=== PATIENT | female | born 1965 | race Caucasian/White ===

== ENCOUNTER → 2017-02-23 | Outpatient (CLI) | payer BC, OTHER ==
--- NOTE | 2017-02-25 10:23 | USB ---
Reason for exam: follow-up at short interval from prior study. History: Patient is postmenopausal and had first child at age 37. Family history of breast cancer in sister at age 63 and breast cancer in mother at age 82. Benign US biopsy breast VAD LT of the left breast, August 21, 2016. Benign left mammotome panel of the left breast, March 07, 2010. Took hormonal contraceptives for 5 years. Physical Findings: Nurse did not find any significant physical abnormalities on exam. US Breast LT Left breast ultrasound includes all four quadrants, the retroareolar region and axilla. Finding demonstrate a 0.5 x 0.5 x 0.5cm shadowing area with clip seen at 2 o'clock, prior biopsy. These results were verbally communicated with the patient and result sheet given to the patient on 02/23/17. ASSESSMENT: Probably benign, BI-RAD 3 RECOMMENDATION: Ultrasound of the left breast in 6 months. Return to routine screening mammogram schedule for both breasts. Back on schedule.
== END | disposition home or self-care (01) ==
LOC: RADUSWWP 09:32
PROVIDERS: ATTEND Obstetrics & Gynecology
DX: R92.8 Other abnormal and inconclusive findings on diagnostic imaging of breast (principal)

== ENCOUNTER → 2017-05-14 | Outpatient (CLI) | payer BC ==
--- NOTE | 2017-05-14 13:47 | XR ---
EXAMINATION TYPE: XR thoracic spine complete DATE OF EXAM: 05/14/2017 COMPARISON: NONE HISTORY: Back pain TECHNIQUE: Three-view thoracic spine FINDINGS: Disc heights are preserved. Vertebral body heights are preserved. There are 12 thoracic typ e vertebral bodies. The pedicles are intact. IMPRESSION: 1. No acute osseous abnormality thoracic spine.
== END | disposition home or self-care (01) ==
LOC: RADXRMAIN 12:58
PROVIDERS: ATTEND Internal Medicine
DX: M54.9 Dorsalgia, unspecified (principal)
CPT/HCPCS: 72072

== ENCOUNTER → 2017-09-03 | Outpatient (CLI) | payer BC, OTHER ==
--- NOTE | 2017-09-06 08:49 | MM ---
Reason for exam: additional evaluation requested from prior study. Last mammogram was performed 1 year ago. History: Patient is postmenopausal and had first child at age 37. Family history of breast cancer in sister at age 63 and breast cancer in mother at age 82. Benign US biopsy breast VAD LT of the left breast, August 21, 2016. Benign left mammotome panel of the left breast, March 07, 2010. Took hormonal contraceptives for 5 years. Physical Findings: Nurse did not find any significant physical abnormalities on exam. MG 3D Diag Mammo W/Cad GUILLE Bilateral CC and MLO view(s) were taken. Prior study comparison: August 21, 2016, left breast MG diagnostic mammo LT wo CAD. August 05, 2016, bilateral MG screening mammo w CAD. There are scattered fibroglandular densities. Previous mammotome biopsy in the left breast x 2. There is chronic nodularity in the left breast. Some slight increasing calcifications 4 o'clock posterior left breast suspected early developing vascular calcifications. 6 month follow up recommended. These results were verbally communicated with the patient and result sheet given to the patient on 09/03/17. ASSESSMENT: Incomplete: need additional imaging evaluation, BI-RAD 0 RECOMMENDATION: Ultrasound of the left breast. (as recommended previoiusly)
--- NOTE | 2017-09-06 08:51 | USB ---
Reason for exam: additional evaluation requested from abnormal screening. History: Patient is postmenopausal and had first child at age 37. Family history of breast cancer in sister at age 63 and breast cancer in mother at age 82. Benign US biopsy breast VAD LT of the left breast, August 21, 2016. Benign left mammotome panel of the left breast, March 07, 2010. Took hormonal contraceptives for 5 years. US Breast LT Left breast ultrasound includes all four quadrants, the retroareolar region and axilla. Finding demonstrates no cystic or solid lesion seen. 6 month follow up recommended for the calcifications seen on mammogram. These results were verbally communicated with the patient and result sheet given to the patient on 09/03/17. ASSESSMENT: Probably benign, BI-RAD 3 RECOMMENDATION: Follow-up diagnostic mammogram of the left breast in 6 months.
== END | disposition home or self-care (01) ==
LOC: RADMAMWWP 13:24
PROVIDERS: ATTEND Obstetrics & Gynecology
DX: R92.8 Other abnormal and inconclusive findings on diagnostic imaging of breast (principal)
CPT/HCPCS: 76641; G0204; G0279

== ENCOUNTER → 2018-03-08 | Outpatient (CLI) | payer OTHER ==
--- NOTE | 2018-03-08 11:07 | MM ---
Reason for exam: follow-up at short interval from prior study. Last mammogram was performed 6 months ago. History: Patient is postmenopausal and had first child at age 37. Family history of breast cancer in sister at age 63 and breast cancer in mother at age 82. Benign US biopsy breast VAD LT of the left breast, August 21, 2016. Benign left mammotome panel of the left breast, March 07, 2010. Took hormonal contraceptives for 5 years. Physical Findings: Nurse did not find any significant physical abnormalities on exam. MG 3D Diag Mammo W/Cad LT CC and MLO view(s) were taken of the left breast. Prior study comparison: September 03, 2017, bilateral MG 3d diag mammo w/cad GUILLE. August 21, 2016, left breast MG diagnostic mammo LT wo CAD. The breast tissue is heterogeneously dense. This may lower the sensitivity of mammography. Stable vascular and punctate calcifications in the left breast. These results were verbally communicated with the patient and result sheet given to the patient on 03/08/18. ASSESSMENT: Benign, BI-RAD 2 RECOMMENDATION: Routine screening mammogram of both breasts in 6 months. Back on schedule.
== END | disposition home or self-care (01) ==
LOC: RADMAMWWP 10:08
PROVIDERS: ATTEND Obstetrics & Gynecology
DX: R92.8 Other abnormal and inconclusive findings on diagnostic imaging of breast (principal)
CPT/HCPCS: 77061; 77065

== ENCOUNTER → 2018-09-13 | Outpatient (CLI) | payer OTHER ==
--- NOTE | 2018-09-14 08:16 | MM ---
Reason for exam: screening (asymptomatic). Last mammogram was performed 6 months ago. History: Patient is postmenopausal and had first child at age 37. Family history of breast cancer in sister at age 63 and breast cancer in mother at age 82. Benign US biopsy breast VAD LT of the left breast, August 21, 2016. Benign left mammotome panel of the left breast, March 07, 2010. Took hormonal contraceptives for 5 years. Physical Findings: A clinical breast exam by your physician is recommended on an annual basis and results should be correlated with mammographic findings. MG 3D Screening Mammo W/Cad Bilateral CC and MLO view(s) were taken. Prior study comparison: March 08, 2018, left breast MG 3d diag mammo w/cad LT. September 03, 2017, bilateral MG 3d diag mammo w/cad GUILLE. The breast tissue is heterogeneously dense. This may lower the sensitivity of mammography. Stable benign calcifications. There is no discrete abnormality. No significant changes when compared with prior studies. ASSESSMENT: Benign, BI-RAD 2 RECOMMENDATION: Routine screening mammogram of both breasts in 1 year.
== END | disposition home or self-care (01) ==
LOC: RADMAMWWP 09:46
PROVIDERS: ATTEND Obstetrics & Gynecology
DX: Z12.31 Encounter for screening mammogram for malignant neoplasm of breast (principal)
CPT/HCPCS: 77063; 77067

== ENCOUNTER → 2019-09-18 | Outpatient (CLI) | payer OTHER ==
--- NOTE | 2019-09-18 12:29 | BD ---
EXAMINATION TYPE: Axial Bone Density DATE OF EXAM: 09/18/2019 COMPARISON: NONE CLINICAL HISTORY: N 95.1 Height: 60.2 IN Weight: 182 LBS RISK FACTORS HISTORY OF: Family History of Osteoporosis: YES MOTHER Active: YES Diet low in dairy products/other sources of calcium: YES Postmenopausal woman: AGE 50 MEDICATIONS: Additional Medications: BREO INHALER, PEPCID, SINGULAIR, LIPITOR, ALLERGY MEDS, ZOLOFT EXAM MEASUREMENTS: Bone mineral densitometry was performed using the [employer] System. Bone mineral density as measured about the Lumbar spine is: ----- L1-L4(G/cm2): 1.223 T Score Values are as follows: ----- L2: 0.0 ----- L3: 0.7 ----- L4: 1.1 ----- L1-L4: 0.4 Bone mineral density BASELINE Bone mineral density about the R hip (g/cm2): 0.939 Bone mineral density about the L hip (g/cm2): 0.892 T Score values are as follows: -----R Neck: -0.7 -----L Neck: -1.0 -----R Total: 0.3 -----L Total: 0.0 Bone mineral density BASELINE IMPRESSION: Normal (Values between +1 and -1 indicate normal bone mass). Values are borderline for osteopenia. C onsider repeating this study in 5 years or sooner if there is some new clinical indication. NOTE: T-SCORE=SD OF THE YOUNG ADULT MEAN.
--- NOTE | 2019-09-19 09:10 | MM ---
Reason for exam: screening (asymptomatic). Last mammogram was performed 1 year ago. History: Patient is postmenopausal and had first child at age 37. Family history of breast cancer in sister at age 63 and breast cancer in mother at age 82. Benign US biopsy breast VAD LT of the left breast, August 21, 2016. Benign left mammotome panel of the left breast, March 07, 2010. Took hormonal contraceptives for 5 years. Physical Findings: A clinical breast exam by your physician is recommended on an annual basis and results should be correlated with mammographic findings. MG 3D Screening Mammo W/Cad Bilateral CC and MLO view(s) were taken. Prior study comparison: September 13, 2018, bilateral MG 3d screening mammo w/cad. March 08, 2018, left breast MG 3d diag mammo w/cad LT. The breast tissue is heterogeneously dense. This may lower the sensitivity of mammography. Finding #1: There is a 7 mm equal density (isodense), obscured oval mass in the lower outer quadrant of the left breast. Finding #2: There are typically benign calcifications in both breasts. Previous mammotome biopsy in the left breast. ASSESSMENT: Incomplete: need additional imaging evaluation, BI-RAD 0 RECOMMENDATION: Special view mammogram of the left breast. If lesion persists on supplemental views, image directed ultrasound is recommended. [facility] will attempt to contact patient to return for supplemental views and ultrasound if indicated.
== END | disposition home or self-care (01) ==
LOC: RADMAMWWP 11:42
PROVIDERS: ATTEND Obstetrics & Gynecology
DX: Z12.31 Encounter for screening mammogram for malignant neoplasm of breast (principal); N95.1 Menopausal and female climacteric states
CPT/HCPCS: 77063; 77067; 77080

== ENCOUNTER → 2019-09-29 | Outpatient (CLI) | payer OTHER ==
--- NOTE | 2019-09-29 13:57 | MM ---
Reason for exam: additional evaluation requested from abnormal screening. Last mammogram was performed less than 1 month ago. History: Patient is postmenopausal and had first child at age 37. Family history of breast cancer in sister at age 63 and breast cancer in mother at age 82. Benign US biopsy breast VAD LT of the left breast, August 21, 2016. Benign left mammotome panel of the left breast, March 07, 2010. Took hormonal contraceptives for 5 years. Physical Findings: Nurse did not find any significant physical abnormalities on exam. MG 3D Work Up W/Cad LT Spot compression CC, spot compression MLO, and ML view(s) were taken of the left breast. Prior study comparison: September 18, 2019, bilateral MG 3d screening mammo w/cad. September 13, 2018, bilateral MG 3d screening mammo w/cad. The breast tissue is heterogeneously dense. This may lower the sensitivity of mammography. Finding: There is an intermediate concern, suspicious high density, microlobulated irregular mass located 11 cm from the nipple in the lower outer quadrant, middle position of the left breast. New finding since September 18, 2019 and September 13, 2018. These results were verbally communicated with the patient and result sheet given to the patient on 09/29/19. ASSESSMENT: Incomplete: need additional imaging evaluation, BI-RAD 0 RECOMMENDATION: Ultrasound of the left breast.
--- NOTE | 2019-09-29 14:00 | USB ---
Reason for exam: additional evaluation requested from abnormal screening. History: Patient is postmenopausal and had first child at age 37. Family history of breast cancer in sister at age 63 and breast cancer in mother at age 82. Benign US biopsy breast VAD LT of the left breast, August 21, 2016. Benign left mammotome panel of the left breast, March 07, 2010. Took hormonal contraceptives for 5 years. US Breast Workup Limited LT Left limited breast ultrasound including focal area of concern, retroareolar and axilla demonstrates a 6 x 9 x 8mm irregular, spiculated, solid, hypoechoic lesion at 4 o'clock and a 2.3 x 1.3 x 1.5cm hypoechoic lymph node at the axilla. Multiple enlarged lymph nodes in the left axilla. These results were verbally communicated with the patient and result sheet given to the patient on 09/29/19. ASSESSMENT: Suspicious, BI-RAD 4 RECOMMENDATION: Surgical consultation and ultrasound core biopsy of the left breast. (4 o'clock ultrasound lesion, consider lymph node biopsy) Called Dr. Morejon's office with mammographic findings and has scheduled an appointment for the patient for 11/02/18 at 11:[address] Willson. Biopsy scheduled for 10/23/18 at 8:00. PRELIMINARY REPORT CALLED AND FAXED TO DR. WILLSON ON 09/29/19.
== END | disposition home or self-care (01) ==
LOC: RADMAMWWP 10:07
PROVIDERS: ATTEND Obstetrics & Gynecology
DX: R92.8 Other abnormal and inconclusive findings on diagnostic imaging of breast (principal)
CPT/HCPCS: 77061; 77065

== ENCOUNTER → 2019-10-23 | Day surgery (SDC) | payer OTHER ==
[2019-10-23 07:35] VITALS: BP 105/69; PULSE 61; RESP 12; TEMP 98.1
--- NOTE | 2019-10-23 10:08 | USB ---
EXAMINATION TYPE: US breast needle core LT, US biopsy breast VAD LT, MG diagnostic mammo LT wo CAD DATE OF EXAM: 10/23/2019 CLINICAL HISTORY: R92.8, ABN MAMM. TECHNIQUE: Ultrasound guided core biopsy of left breast. COMPARISON: 09/29/2019 FINDINGS: The procedure of ultrasound guided core biopsy was explained to the patient. Benefits, alternatives, and risks were discussed. An informed consent was then obtained. Preprocedural timeout was performed. Site A (4:00): The patient was placed in supine positioning for imaging and for the procedure. The overlying skin was prepped and draped in usual sterile fashion. 10 cc of 1% lidocaine was used as anesthetic into the skin and subcutaneous tissue and 10 cc of lidocaine with epinephrine was utilized to anesthetize the subcutaneous tissues up to the 9 mm mass at the 4:00 position in the left breast. Under ultrasound guidance, a 12-gauge vacuum assisted biopsy gun device was used to obtain 5 core samples. Following this, a ribbon-shaped biopsy marker was left in the mass. Site B (axillary lymph node): The patient was placed in supine positioning for imaging and for the procedure. The overlying skin was prepped and draped in usual sterile fashion 10 cc of 1% lidocaine was used as anesthetic into the skin and subcutaneous tissue up to the enlarged left axillary lymph node. Under ultrasound guidance, a 12-gauge vacuum assisted biopsy gun device was used to obtain 3 core samples. Following this, a hydromark was left in lymph node. Postprocedure mammogram demonstrates appropriate biopsy marker placement. The patient tolerated the procedure well without any immediate complication. The patient was kept in the radiology department for short stay after the procedure and then discharged home in stable condition. IMPRESSION: Successful, uncomplicated ultrasound guided core biopsy of a highly suspicious 9 mm mass at the 4:00 position in the left breast and enlarged left axillary lymph node, full pathology results to follow. Of note there is at least one additional enlarged left axillary lymph node. Pathology Results: Malignant A. LEFT BREAST LESION AT 4:00 POSITION, BIOPSIES: Infiltrating duct carcinoma, Fernanda Grade 3. See Surgical Pathology Cancer Case Summary. B. LEFT AXILLARY NODULE, NEEDLE CORE BIOPSY: Sclerotic fibroadipose tissue involved by adenocarcinoma histologically similar to that seen in the 4:00 breast biopsy specimen. Due to the absence of lymph node tissue, it cannot be determined whether findings represent separate primaries arising in axillary breast tissue vs replaced nodes. C. LEFT AXILLARY NEEDLE CORE BIOPSY: Sclerotic fibroadipose tissue involved by adenocarcinoma histologically similar to that seen in the 4:00 breast biopsy specimen. Due to the absence of lymph node tissue, it cannot be determined whether findings represent separate primaries arising in axillary breast tissue vs replaced nodes. Recommendation Surgical consult of the left breast. Definitive surgical/medical management. MTDD
== END ==
LOC: RADUSWWP 06:59
PROVIDERS: ATTEND Surgery
DX: C50.512 Malignant neoplasm of lower-outer quadrant of left female breast (principal); Z17.0 Estrogen receptor positive status [ER+]
CPT/HCPCS: 88305; 88342; 88341; 77065; 38505; 19083; A4648; J2001

== ENCOUNTER 2019-11-16 11:58 | Day surgery (SDC) | payer OTHER ==
[2019-11-15 08:30] VITALS: BMI 34.0
[~2019-11-16 11:58] MED LIST: DEXAMETHASONE SOD PHOSPHATE 10 MG/ML 1 ML VIAL IV ONE; HEPARIN SODIUM,PORCINE 5,000 UNIT/ML 1 ML VIAL SQ ONE; HYDROmorphone 0.5 MG/0.5 ML SYRINGE IVP PRN; LACTATED RINGERS 1,000 ML IV SCH; LIDOCAINE 1% 20 ML VIAL (10MG/ML) FOR IV START INTRADERMA PRN; Pre Op ABX Message 1 EACH MISC MISCELLANE ONE; SCOPOLAMINE 1.5MG/72HR PATCH TRANSDERM ONE
[2019-11-16] MEDS ORDERED: ONDANSETRON 4 MG/2 ML VIAL IVP ONE (12:25)
[2019-11-16] MEDS ORDERED: HEPARIN SODIUM,PORCINE 100 UNIT/ML 5 ML VIAL IV ONE (13:28)
[2019-11-16] MEDS ORDERED: LIDOCAINE (PF) 10 MG/ML 2 ML VIAL SQ ONE ×2 (13:29→14:21)
--- NOTE | 2019-11-16 13:32 | P.GSHP ---
History of Present Illness H&P Date: 11/16/19 Chief Complaint: Left breast cancer 54-year-old female here today for Port-A-Cath placement. Patient with recent diagnosis of left-sided breast cancer with lymph node metastasis. Patient is to begin neoadjuvant chemotherapy. She has a PET scan ordered for tomorrow and an MRI scheduled for Wednesday. She has not had a port previously. Past Medical History Past Medical History: Asthma, Cancer, GERD/Reflux, Hyperlipidemia Additional Past Medical History / Comment(s): boderline Diabetic diet controlled, breast cancer History of Any Multi-Drug Resistant Organisms: None Reported Past Surgical History: Breast Surgery, Section, Cholecystectomy Additional Past Surgical History / Comment(s): 2012, 2015 left breast biopsies. finger surgery Past Anesthesia/Blood Transfusion Reactions: Postoperative Nausea & Vomiting (PONV) Additional Past Anesthesia/Blood Transfusion Reaction / Comment(s): once with a colonoscopy Smoking Status: Former smoker - Past Family History Mother Family Medical History: Cancer, Deep Vein Thrombosis (DVT) Additional Family Medical History / Comment(s): breast Sister(s) Family Medical History: Cancer Additional Family Medical History / Comment(s): breast Medications and Allergies Home Medications Medication Instructions Recorded Confirmed Type Cetirizine HCl [Zyrtec] 10 mg PO DAILY 10/06/19 11/15/19 History Famotidine [Pepcid] 20 mg PO BID 10/06/19 11/15/19 History Montelukast [Singulair] 10 mg PO DAILY 10/06/19 11/15/19 History Sertraline [Zoloft] 100 mg PO HS 10/06/19 11/15/19 History Atorvastatin Calcium [Lipitor] 20 mg PO HS 11/15/19 11/15/19 History Fluticasone/Vilanterol [Breo 1 inhalation PO DAILY 11/15/19 11/15/19 History Ellipta 100-25 Mcg Inhaler] Allergies Allergy/AdvReac Type Severity Reaction Status Date / Time ciprofloxacin [From Cipro] Allergy Swelling Verified 11/16/19 12:22 desloratadine [From Clarinex] Allergy Swelling Verified 11/16/19 12:22 loratadine [From Claritin] Allergy Swelling Verified 11/16/19 12:22 Surgical - Exam Vital Signs Temp Pulse Resp BP Pulse Ox 97.0 F L 61 17 121/58 97 11/16/19 12:21 11/16/19 12:21 11/16/19 12:21 11/16/19 12:21 11/16/19 12:21 Physical exam: General: Well-developed, well-nourished HEENT: Normocephalic, sclerae nonicteric Abdomen: Nontender, nondistended Extremities: No edema Neuro: Alert and oriented Assessment and Plan (1) Breast cancer, left Narrative/Plan: Will proceed with Port-A-Cath placement at this time. Risks of bleeding, infection, DVT, pneumothorax, catheter malfunction, anesthesia related complications were discussed. The patient understands and wishes to proceed. Current Visit: Yes Status: Acute Code(s): C50.912 - MALIGNANT NEOPLASM OF UNSPECIFIED SITE OF LEFT FEMALE BREAST SNOMED Code(s): 499469336
[2019-11-16] MEDS ORDERED: MIDAZOLAM 2 MG/2 ML VIAL ONE (13:35)
[2019-11-16] MEDS ORDERED: SUCCINYLCHOLINE CHLORIDE 100 MG/5 ML SYR IV ONE (13:35)
[2019-11-16] MEDS ORDERED: DEXAMETHASONE SOD PHOS (MDV) 100 MG/10 ML VIAL ONE (13:35)
[2019-11-16] MEDS ORDERED: PROPOFOL 10 MG/ML 20 ML VIAL IV ONE (13:35)
[2019-11-16] MEDS ORDERED: LACTATED RINGERS 1,000 ML IV ONE (14:20)
[2019-11-16] MEDS ORDERED: NALOXONE 0.4 MG/ML 1 ML VIAL IV PRN (14:33)
--- NOTE | 2019-11-16 14:35 | P.OP ---
Date of Procedure: 11/16/19 Procedure(s) Performed: PREOPERATIVE DIAGNOSIS: Left breast cancer POSTOPERATIVE DIAGNOSIS: Same PROCEDURE: Port-A-Cath placement SURGEON: Demetris EBL: Minimal ANESTHESIA: General COMPLICATIONS: None OPERATIVE PROCEDURE: Patient was brought and placed on the operative table in the supine position. The patient was sedated per anesthesia that time. The chest and neck were prepped and draped in usual sterile fashion. The ultrasound probe was used to identify the location of the right internal jugular vein. The skin was localized with lidocaine. The Seldinger needle was advanced into the IJ under ultrasound guidance. The wire was advanced through the needle under fluoroscopic guidance into the superior vena cava. A port pocket was created in the right infraclavicular location. The catheter was tunneled from the wire entrance site to the port pocket. The port was then connected to the catheter. The dilator introducer was threaded over the guidewire. The guidewire and dilator were then removed. The catheter was advanced through the introducer and introducer was then removed. The tip was seen to be in the right atrial junction. Port was flushed with both saline and a Hep-Lock solution. There was good flow both in and out of the port. The port was sutured in underlying tissues using 3-0 silk sutures. The subcutaneous tissues were reapproximated using 3-0 Vicryl sutures and the skin at both locations using 4-0 Monocryl sutures. Skin glue and sterile dressings then applied. DISPOSITION: Stable to recovery room
[2019-11-16 14:56] VITALS: TEMP 97.1
--- NOTE | 2019-11-16 15:17 | XR ---
EXAMINATION TYPE: XR chest 1V confirm line [facility] DATE OF EXAM: 11/16/2019 COMPARISON: Chest x-ray dated 03/12/2014 HISTORY: Mediport insertion. TECHNIQUE: Single frontal view of the chest is obtained. FINDINGS: Right-sided Mediport has been inserted with its distal tip appropriately placed in the dist al superior vena cava near the cavoatrial junction. No postprocedural pneumothorax is seen. There is no focal air space opacity, pleural effusion, or pulmonary vascular congestion seen. The cardiac chavez houette size is within normal limits. The osseous structures are intact. Mild arthropathy of the ac romioclavicular joints. IMPRESSION: No acute cardiopulmonary process. Appropriately placed right sided MediPort terminating just cranial to the cavoatrial junction. No postprocedural pneumothorax.
--- NOTE | 2019-11-16 15:31 | FL ---
Fluoroscopy HISTORY: Port-A-Cath placement 5 seconds fluoroscopy time supplied to the referring clinician. 1 intraoperative C-arm images docume nt the procedure. See dictated report from general surgery.
[2019-11-16 15:56] VITALS: PULSE 74; RESP 18
[2019-11-16 16:26] VITALS: BP 125/62
== END 2019-11-16 16:37 | disposition home or self-care (01) ==
LOC: OR 11:58
PROVIDERS: ATTEND Surgery
DX: C50.512 Malignant neoplasm of lower-outer quadrant of left female breast (principal); C77.9 Secondary and unspecified malignant neoplasm of lymph node, unspecified; J45.909 Unspecified asthma, uncomplicated; K21.9 Gastro-esophageal reflux disease without esophagitis; E78.5 Hyperlipidemia, unspecified; E11.9 Type 2 diabetes mellitus without complications; K08.109 Complete loss of teeth, unspecified cause, unspecified class; F32.9 Major depressive disorder, single episode, unspecified; E66.9 Obesity, unspecified; Z98.890 Other specified postprocedural states; Z90.49 Acquired absence of other specified parts of digestive tract; Z91.89 Other specified personal risk factors, not elsewhere classified; Z87.891 Personal history of nicotine dependence; Z80.3 Family history of malignant neoplasm of breast; Z82.49 Family history of ischemic heart disease and other diseases of the circulatory system; Z79.899 Other long term (current) drug therapy; Z79.51 Long term (current) use of inhaled steroids; Z88.1 Allergy status to other antibiotic agents; Z88.8 Allergy status to other drugs, medicaments and biological substances
CPT/HCPCS: 77001; 36561; C1788; J2250; J2001; J1644; J1642; J1100 ×2; J2405; J0330; J2704

== ENCOUNTER → 2019-11-17 | Outpatient (CLI) | payer OTHER ==
--- NOTE | 2019-11-18 16:42 | ECHOF ---
Referral Reason:C50.512 Breast cancer; Z01.818 Pre-chemo MEASUREMENTS -------- HEIGHT: 154.9 cm WEIGHT: 81.6 kg BP: 127/59 RVIDd: 3.0 cm (< 3.3) IVSd: 1.1 cm (0.6 - 1.1) LVIDd: 4.3 cm (3.9 - 5.3) LVPWd: 1.2 cm (0.6 - 1.1) IVSs: 1.6 cm LVIDs: 3.2 cm LVPWs: 1.7 cm LA Diam: 3.6 cm (2.7 - 3.8) LAESV Index (A-L): 19.91 ml/m Ao Diam: 2.7 cm (2.0 - 3.7) AV Cusp: 1.9 cm (1.5 - 2.6) MV EXCURSION: 17.310 mm (> 18.000) MV EF SLOPE: 111 mm/s (70 - 150) EPSS: 0.5 cm MV E Delmer: 0.98 m/s MV DecT: 236 ms MV A Delmer: 0.86 m/s MV E/A Ratio: 1.14 RAP: 5.00 mmHg RVSP: 28.14 mmHg TAPSE: 22.26 mm FINDINGS -------- Sinus rhythm. This was a technically good study. The left ventricular size is normal. There is borderline concentric left ventricular hypertrophy. Overall left ventricular systolic function is normal with, an EF between 60 - 65 %. The right ventricle is normal in size. Normal LA size by volume 22+/-6 ml/m2. The right atrium is normal in size. Interatrial and interventricular septum intact. The aortic valve is trileaflet and appears structurally normal. There is trace mitral regurgitation. Mild tricuspid regurgitation present. Right ventricular systolic pressure is normal at < 35 mmHg. Trace/mild (physiologic) pulmonic regurgitation. The aortic root size is normal. Normal inferior vena cava with normal inspiratory collapse consistent with estimated right atrial pre ssure of 5 mmHg. There is no pericardial effusion. CONCLUSIONS -------- 1. Sinus rhythm. 2. This was a technically good study. 3. The left ventricular size is normal. 4. There is borderline concentric left ventricular hypertrophy. 5. Overall left ventricular systolic function is normal with, an EF between 60 - 65 %. 6. The right ventricle is normal in size. 7. Normal LA size by volume 22+/-6 ml/m2. 8. The right atrium is normal in size. 9. Interatrial and interventricular septum intact. 10. The aortic valve is trileaflet and appears structurally normal. 11. There is trace mitral regurgitation. 12. Mild tricuspid regurgitation present. 13. Right ventricular systolic pressure is normal at < 35 mmHg. 14. Trace/mild (physiologic) pulmonic regurgitation. 15. The aortic root size is normal. 16. Normal inferior vena cava with normal inspiratory collapse consistent with estimated right atrial pressure of 5 mmHg. 17. There is no pericardial effusion. VIRTUAL CLASSROOM MANAGER: Yolanda Prajapati RDCS
--- NOTE | 2019-11-21 10:14 | PE ---
Nuclear medicine PET/CT HISTORY: Breast carcinoma left breast, initial Patient received 13.5 mCi F-18 FDG intravenously in delayed scanning was performed from the skull bas e to the mid thighs. Localization and attenuation correction CT scan was performed. Correlation to ultrasound left breast 09/29/2019, mammogram 09/29/2019 Head and neck: Within the left axilla there is corresponding adenopathy. There are multiple enlarged nodes with associated hypermetabolic uptake, at least 4 nodes with associated abnormal uptake, SUV 5. 2, 8.5, 6.6, 6.4. Some mild uptake noted at the level of the left nipple, minimal uptake in the infer ior aspect of the left breast within some mild soft tissue. There is no evident lung mass. No pleural or pericardial effusion. Right pectoral port is present, th ere is a right jugular catheter coursing to the level of the cavoatrial junction. ABDOMEN: There is no retroperitoneal adenopathy. No evident liver mass. Patient is post cholecystecto my. No suspicious hypermetabolic uptake. Osseous structures are within normal limits. IMPRESSION: Findings of abnormal nodes within the left axilla.
== END | disposition home or self-care (01) ==
LOC: RADECHMAIN 16:00
PROVIDERS: ATTEND Internal Medicine Hematology & Oncology
DX: I07.1 Rheumatic tricuspid insufficiency (principal); C50.512 Malignant neoplasm of lower-outer quadrant of left female breast
CPT/HCPCS: 93306; 78815; A9552

== ENCOUNTER 2020-02-15 08:37 | Day surgery (SDC) | payer OTHER ==
[2020-02-15 09:33] LABS: Glucose,Whole Blood 112 mg/dL (75-99)
[2020-02-15 10:33] VITALS: RESP 18; TEMP 98.1
[2020-02-15 10:50] VITALS: PULSE 69
--- NOTE | 2020-02-15 11:23 | US ---
EXAMINATION TYPE: US FNA first lesion DATE OF EXAM: 02/15/2020 COMPARISON: None HISTORY: Submandibular adenopathy, left submandibular palpable mass. Maximal barrier technique was utilized. After informed consent, skin overlying the node in the left submandibular location as specified by the patient was localized with ultrasound and the overlying sk in prepped and draped. Ultrasound was utilized using sterile technique. Lidocaine was used for local anesthesia. 3 passes with a 25-gauge needle were made into the node and aspirated specimen was submit juma to cytology. Following the procedure hemostasis achieved. No immediate complication. The patie nt discharged in stable condition. IMPRESSION: STATUS POST ULTRASOUND GUIDED FINE NEEDLE ASPIRATION OF LEFT SUBMANDIBULAR LYMPH NODE, TUYET THOLOGY IS PENDING. THIS PROCEDURE WAS PERFORMED BY THE UNDERSIGNED.
[2020-02-15 11:40] VITALS: BP 118/76
== END 2020-02-15 11:20 | disposition home or self-care (01) ==
LOC: RADPROMAIN 08:37
PROVIDERS: ATTEND Internal Medicine Hematology & Oncology
DX: R59.0 Localized enlarged lymph nodes (principal); C50.912 Malignant neoplasm of unspecified site of left female breast
CPT/HCPCS: 10005; 88173; 88305

== ENCOUNTER → 2020-02-15 | Outpatient (CLI) | payer OTHER | END | disposition home or self-care (01) | LOC: LABWHC1 07:04 | PROVIDERS: ATTEND Internal Medicine Hematology & Oncology | DX: U07.1 COVID-19 (principal) | CPT/HCPCS: 87635 ==

== ENCOUNTER → 2020-03-27 | Outpatient (CLI) | payer OTHER | END | disposition home or self-care (01) | LOC: LABWHC1 12:05 | PROVIDERS: ATTEND Internal Medicine | DX: R05 Cough (principal); D84.9 Immunodeficiency, unspecified ==

== ENCOUNTER → 2020-03-29 | Outpatient (CLI) | payer OTHER ==
--- NOTE | 2020-04-01 09:19 | PE ---
EXAMINATION TYPE: PET CT fusion skull to thigh DATE OF EXAM: 03/29/2020 COMPARISON: Prior PET/CT November 17, 2019. HISTORY: Left-sided breast cancer diagnosed on biopsy October 23, 2019 completed chemotherapy March 14. TECHNIQUE: Following the intravenous administration of 12.41 mCi of F-18 FDG, whole body images are performed from the skull base to the midthigh. Images are reviewed on the computer in the coronal, a xial, and sagittal planes. Reconstructed rotating images are created on independent workstation and reviewed on the computer. A noncontrast CT is performed in conjunction with the PET scan. SCAN: Subsequent Scan FINDINGS: SKULL BASE AND NECK: No new areas of suspicious hypermetabolic uptake. CHEST, MEDIASTINUM, AND HILAR REGION: Interval resolution of hypermetabolic and enlarged left axillar y and lower upper thoracic adenopathy. No residual enlarged or hypermetabolic lymph nodes seen on cur rent study. There is however new moderate linear atelectasis and/or slightly thickened consolidation in the lower lungs. There is masslike consolidation in the lingula with hypermetabolic uptake abutting the left a spect of the mediastinum and the anterior pleura axial image 96 for reference, hypermetabolic uptake is present, max SUV is 6.76. Some areas of central groundglass opacity are identified. There is addit ional hypermetabolic nodule or nodular consolidation measuring 1.9 x 1.3 cm axial image 102 with max SUV of 5.49. No additional areas of new hypermetabolic uptake. ABDOMEN AND PELVIS: Normal excretion is present. No new suspicious areas of abnormal hypermetabolic u ptake. OSSEOUS STRUCTURES: No new areas of suspicious hypermetabolic uptake. OTHER CT: Cholecystectomy clips are redemonstrated. Facet arthropathy lower lumbar levels. Right inte rnal jugular Mediport catheter terminates in SVC similar to prior. Mild calcified plaque bilateral ca rotid bulb level. IMPRESSION: New hypermetabolic lingular masslike consolidation and central left lower lobe nodular co nsolidation, findings could reflect multilobar multifocal infectious process but new neoplastic invol vement cannot be excluded. Correlate clinically. Advise short term CT follow-up in 2-4 weeks time. If areas of new concern do not resolve further investigation with sampling would be advised. There is Interval resolution or positive treatment response of left axillary adenopathy noted.
== END | disposition home or self-care (01) ==
LOC: RADPETMAIN 16:19
PROVIDERS: ATTEND Internal Medicine Hematology & Oncology
DX: J18.1 Lobar pneumonia, unspecified organism (principal); C50.512 Malignant neoplasm of lower-outer quadrant of left female breast
CPT/HCPCS: 78815; A9552

== ENCOUNTER → 2020-04-09 | Outpatient (CLI) | payer OTHER ==
--- NOTE | 2020-04-10 15:54 | ECHOF ---
Referral Reason:Z01.818 chemo exposure MEASUREMENTS -------- HEIGHT: 152.4 cm WEIGHT: 81.6 kg BP: RVIDd: 3.0 cm (< 3.3) IVSd: 1.1 cm (0.6 - 1.1) LVIDd: 4.5 cm (3.9 - 5.3) LVPWd: 0.9 cm (0.6 - 1.1) IVSs: 1.4 cm LVIDs: 2.8 cm LVPWs: 1.3 cm LA Diam: 3.7 cm (2.7 - 3.8) LAESV Index (A-L): 25.94 ml/m Ao Diam: 2.7 cm (2.0 - 3.7) AV Cusp: 2.0 cm (1.5 - 2.6) LA Diam: 3.8 cm (2.7 - 3.8) MV EXCURSION: 19.436 mm (> 18.000) MV EF SLOPE: 106 mm/s (70 - 150) EPSS: 0.5 cm MV E Delmer: 0.61 m/s MV DecT: 244 ms MV A [place]mer: 0.82 m/s MV E/A Ratio: 0.75 RAP: 5.00 mmHg RVSP: 26.84 mmHg FINDINGS -------- Sinus rhythm. This was a technically good study. LV size, wall thickness and systolic function are normal, with an EF greater than 55%. The left tessa tricular size is normal. The right ventricle is normal in size. The left atrial size is normal. Normal LA size by volume 22+/-6 ml/m2. The right atrial size is normal. There is mild aortic valve sclerosis. There is no evidence of aortic regurgitation. Mild mitral annular calcification present. Mild mitral regurgitation is present. Mild tricuspid regurgitation present. Right ventricular systolic pressure is normal at < 35 mmHg. There is no pulmonic regurgitation present. The aortic root size is normal. There is no pericardial effusion. CONCLUSIONS -------- 1. Sinus rhythm. 2. This was a technically good study. 3. LV size, wall thickness and systolic function are normal, with an EF greater than 55%. 4. The left ventricular size is normal. 5. The right ventricle is normal in size. 6. The left atrial size is normal. 7. Normal LA size by volume 22+/-6 ml/m2. 8. The right atrial size is normal. 9. There is mild aortic valve sclerosis. 10. Mild mitral annular calcification present. 11. Mild mitral regurgitation is present. 12. Mild tricuspid regurgitation present. 13. Right ventricular systolic pressure is normal at < 35 mmHg. 14. There is no pulmonic regurgitation present. 15. The aortic root size is normal. 16. There is no pericardial effusion. CUSTOMER ASSISTANCE REPRESENTATIVE: Darlene Sigala RDCS
== END | disposition home or self-care (01) ==
LOC: RADECHMAIN 11:35
PROVIDERS: ATTEND Internal Medicine Hematology & Oncology
DX: Z01.818 Encounter for other preprocedural examination (principal); I08.1 Rheumatic disorders of both mitral and tricuspid valves; I70.0 Atherosclerosis of aorta
CPT/HCPCS: 93306

== ENCOUNTER → 2020-04-17 | Outpatient (CLI) | payer OTHER ==
--- NOTE | 2020-04-17 14:49 | CT ---
EXAMINATION TYPE: CT chest w con DATE OF EXAM: 04/17/2020 COMPARISON: 01/17/2014 CT chest. No MRI is available at this location HISTORY: [place] Pneumonia, Cough, Abnormal MRI CT DLP: 423.20 mGycm, Automated exposure control for dose reduction was used. CONTRAST: Performed injected with 85 mL of Isovue 300. TECHNIQUE: Axial images were obtained at 5 mm thick sections. Reconstructed images are reviewed on [employer] computer in the coronal plane. FINDINGS: Portion of the thyroid visualized is normal. There is a consolidation within the lingula. Atelectasis and pneumonia could be considered. Some mini mal filtrate suggesting subsegmental atelectasis within the lower portion right middle lobe. No enlarged mediastinal or hilar adenopathy is evident. There is a 1.0 cm lymph node in the left ax illa. The ascending aorta diameter at the level of the main pulmonary artery is 2.7 cm. The main pul monary artery diameter at the bifurcation is 3.4 cm. Correlate for pulmonary hypertension. Limited CT sections are obtained through the upper abdomen. Abdomen is essentially unremarkable. Smal l hiatal hernia may be present. IMPRESSIONS: 1. Consolidation within the lingula may be associated with atelectasis or pneumonia. 2. Minimal subsegmental atelectasis right middle lobe anterior base. 3. Small hiatal hernia, present previously. 4. 1.0 cm left axillary lymph node
== END | disposition home or self-care (01) ==
LOC: RADCTMAIN 10:00
PROVIDERS: ATTEND Internal Medicine Critical Care Medicine
DX: J98.11 Atelectasis (principal); Z88.1 Allergy status to other antibiotic agents; Z88.8 Allergy status to other drugs, medicaments and biological substances
CPT/HCPCS: 71260; Q9967

== ENCOUNTER 2020-08-18 09:20 | Emergency (ER) | payer OTHER ==
[2020-08-18 09:24] VITALS: TEMP 97.8
[2020-08-18] MEDS ORDERED: ONDANSETRON 4 MG/2 ML VIAL IVP STA (09:45)
[2020-08-18] MEDS ORDERED: MORPHINE SULFATE 4 MG/ML SYRINGE IV STA (09:45)
[2020-08-18] MEDS ORDERED: SODIUM CHLORIDE 0.9% 1,000 ML IV STA (09:45)
[2020-08-18] MEDS ORDERED: SODIUM CHLORIDE 0.9% 500 ML 500 ML IV STA (09:45)
[2020-08-18 10:10] LABS: Anisocytosis Slight; Basophils # (A) 0.1 k/uL (0-0.2); Basophils % (A) 2 %; Eosinophils # (A) 0.1 k/uL (0-0.7); Eosinophils % (A) 2 %; HCT 40.1 % (34.0-46.0); HGB 13.5 gm/dL (11.4-16.0); Lymphocytes # (A) 0.8 k/uL (1.0-4.8); Lymphocytes % (A) 13 %; MCH 28.5 pg (25.0-35.0); MCHC 33.6 g/dL (31.0-37.0); MCV 84.8 fL (80.0-100.0); Mean Platelet Volume 7.4; Monocytes # (A) 0.5 k/uL (0-1.0); Monocytes % (A) 7 %; Neutrophils # (A) 4.9 k/uL (1.3-7.7); Neutrophils % (A) 75 %; Platelet Count 135 k/uL (150-450); Poikilocytosis Slight; RBC 4.73 m/uL (3.80-5.40); RDW 16.1 % (11.5-15.5); WBC 6.5 k/uL (3.8-10.6)
[2020-08-18 10:12] LABS: Appearance,Urine Clear (Clear); Bilirubin,Urine Negative (Negative); Blood,Urine Negative (Negative); Color,Urine Yellow; Glucose,Urine (UA) Negative (Negative); Ketones,Urine Negative (Negative); Leukocyte Esterase,Urine Negative (Negative); Nitrite,Urine Negative (Negative); Protein,Urine Negative (Negative); Specific Gravity,Urine 1.008 (1.001-1.035); Urobilinogen,Urine <2.0 mg/dL (<2.0)
--- NOTE | 2020-08-18 10:31 | ED ---
Abdominal Pain HPI - General Chief Complaint: Abdominal Pain Stated Complaint: Cancer pt - Abd Pain/Vomiting Time Seen by Provider: 08/18/20 09:28 Source: patient, RN notes reviewed Mode of arrival: ambulatory Limitations: no limitations - History of Present Illness Initial Comments: This a 55-year-old female presents emergency Department chief complaint of abdominal pain. Patient's been having increasing symptoms of last 4 days. Patient states that she's had a rib little swallow but she states she has small bowel movement 2 days ago. She does admit to some nausea but no vomiting that he chest pain or shortness of breath. She's had a prior cholecystectomy. Patient does admit that she is only been treated for breast cancer she states that she did have some metastasis to lymph nodes but no other areas noted on prior scans. Patient has no complaints of headache or dizziness no focal weakness denies any dysuria hematuria. - Related Data Home Medications Medication Instructions Recorded Confirmed Cetirizine HCl [Zyrtec] 10 mg PO DAILY 10/06/19 02/05/20 Famotidine [Pepcid] 20 mg PO BID 10/06/19 02/05/20 Montelukast [Singulair] 10 mg PO DAILY 10/06/19 02/05/20 Sertraline [Zoloft] 100 mg PO HS 10/06/19 02/05/20 Atorvastatin Calcium [Lipitor] 20 mg PO HS 11/15/19 02/05/20 Fluticasone/Vilanterol [Breo 1 inhalation PO DAILY 11/15/19 02/05/20 Ellipta 100-25 Mcg Inhaler] Diphenox-Atrop 2.5-0.025 mg 1 - 2 tab PO QID PRN 02/05/20 02/05/20 [Lomotil] Non Formulary Drug 1 each IV ONCE 02/05/20 02/05/20 Prochlorperazine [Compazine] 10 mg PO Q8H 02/05/20 02/05/20 Ondansetron [Zofran] 4 mg PO Q8HR PRN 02/08/20 02/08/20 dexAMETHasone [Dexamethasone] 4 mg PO DIRECTED 02/08/20 02/08/20 Previous Rx's Medication Instructions Recorded Ondansetron Odt [Zofran Odt] 4 mg PO Q8HR PRN #10 tab 08/18/20 Allergies Allergy/AdvReac Type Severity Reaction Status Date / Time ciprofloxacin [From Cipro] Allergy Swelling Verified 08/18/20 09:24 desloratadine [From Clarinex] Allergy Swelling Verified 08/18/20 09:24 loratadine [From Claritin] Allergy Swelling Verified 08/18/20 09:24 Review of Systems ROS Statement: Those systems with pertinent positive or pertinent negative responses have been documented in the HPI. ROS Other: All systems not noted in ROS Statement are negative. Past Medical History Past Medical History: Asthma, Cancer, GERD/Reflux, Hyperlipidemia Additional Past Medical History / Comment(s): borderline Diabetic diet controlled, breast cancer left History of Any Multi-Drug Resistant Organisms: None Reported Past Surgical History: Breast Surgery, Section, Cholecystectomy Additional Past Surgical History / Comment(s): 2012, 2015 left breast biopsies. finger surgery Past Anesthesia/Blood Transfusion Reactions: Postoperative Nausea & Vomiting (PONV) Additional Past Anesthesia/Blood Transfusion Reaction / Comment(s): once with a colonoscopy. no previous blood transfusion Past Psychological History: Depression Smoking Status: Former smoker Past Alcohol Use History: None Reported Past Drug Use History: None Reported - Past Family History Mother Family Medical History: Cancer, Deep Vein Thrombosis (DVT) Additional Family Medical History / Comment(s): breast Sister(s) Family Medical History: Cancer Additional Family Medical History / Comment(s): breast General Exam Limitations: no limitations General appearance: alert, in no apparent distress Head exam: Present: atraumatic, normocephalic, normal inspection Neck exam: Present: normal inspection, full ROM. Absent: tenderness, meningismus, lymphadenopathy Respiratory exam: Present: normal lung sounds bilaterally. Absent: respiratory distress, wheezes, rales, rhonchi, stridor Cardiovascular Exam: Present: regular rate, normal rhythm, normal heart sounds. Absent: systolic murmur, diastolic murmur, rubs, gallop, clicks GI/Abdominal exam: Present: soft, tenderness, normal bowel sounds. Absent: distended, guarding, rebound, rigid Back exam: Absent: CVA tenderness (R), CVA tenderness (L) Skin exam: Present: warm, dry, intact, normal color. Absent: rash Course Vital Signs 08/18/20 08/18/20 09:22 10:41 Temperature 97.8 F 97.8 F Pulse Rate 60 74 Respiratory 18 16 Rate Blood Pressure 156/86 139/65 O2 Sat by Pulse 98 98 Oximetry Medical Decision Making - Medical Decision Making 55-year-old presented for abdominal pain CT shows evidence of constipation along with some mild dilated small bowel consistent with enteritis. Labs unremarkable. I doing most her pain is related to her constipation. Patient we discharged with magnesium citrate return parameters were discussed. - Lab Data Result diagrams: 08/18/20 09:59 08/18/20 09:59 Lab Results 08/18/20 08/18/20 08/18/20 Range/Units 09:59 09:59 09:59 WBC 6.5 (3.8-10.6) k/uL RBC 4.73 (3.80-5.40) m/uL Hgb 13.5 (11.4-16.0) gm/dL Hct 40.1 (34.0-46.0) % MCV 84.8 (80.0-100.0) fL MCH 28.5 (25.0-35.0) pg MCHC 33.6 (31.0-37.0) g/dL RDW 16.1 H (11.5-15.5) % Plt Count 135 L (150-450) k/uL Neutrophils % 75 % Lymphocytes % 13 % Monocytes % 7 % Eosinophils % 2 % Basophils % 2 % Neutrophils # 4.9 (1.3-7.7) k/uL Lymphocytes # 0.8 L (1.0-4.8) k/uL Monocytes # 0.5 (0-1.0) k/uL Eosinophils # 0.1 (0-0.7) k/uL Basophils # 0.1 (0-0.2) k/uL Poikilocytosis Slight Anisocytosis Slight Sodium 137 (137-145) mmol/L Potassium 3.8 (3.5-5.1) mmol/L Chloride 97 L (98-107) mmol/L Carbon Dioxide 33 H (22-30) mmol/L Anion Gap 7 mmol/L BUN 10 (7-17) mg/dL Creatinine 0.68 (0.52-1.04) mg/dL Est GFR (CKD-EPI)AfAm >90 (>60 ml/min/1.73 sqM) Est GFR (CKD-EPI)NonAf >90 (>60 ml/min/1.73 sqM) Glucose 136 H (74-99) mg/dL Plasma Lactic Acid Qasim (0.7-2.0) mmol/L Calcium 9.7 (8.4-10.2) mg/dL Total Bilirubin 1.0 (0.2-1.3) mg/dL AST 35 (14-36) U/L ALT 26 (4-34) U/L Alkaline Phosphatase 115 (38-126) U/L Total Protein 7.8 (6.3-8.2) g/dL Albumin 4.4 (3.5-5.0) g/dL Amylase 54 (30-110) U/L Lipase 117 (23-300) U/L Urine Color Yellow Urine Appearance Clear (Clear) Urine pH 7.0 (5.0-8.0) Ur Specific [place] 1.008 (1.001-1.035) Urine Protein Negative (Negative) Urine Glucose (UA) Negative (Negative) Urine Ketones Negative (Negative) Urine Blood Negative (Negative) Urine Nitrite Negative (Negative) Urine Bilirubin Negative (Negative) Urine Urobilinogen <2.0 (<2.0) mg/dL Ur Leukocyte Esterase Negative (Negative) 08/18/20 Range/Units 09:59 WBC (3.8-10.6) k/uL RBC (3.80-5.40) m/uL Hgb (11.4-16.0) gm/dL Hct (34.0-46.0) % MCV (80.0-100.0) fL MCH (25.0-35.0) pg MCHC (31.0-37.0) g/dL RDW (11.5-15.5) % Plt Count (150-450) k/uL Neutrophils % % Lymphocytes % % Monocytes % % Eosinophils % % Basophils % % Neutrophils # (1.3-7.7) k/uL Lymphocytes # (1.0-4.8) k/uL Monocytes # (0-1.0) k/uL Eosinophils # (0-0.7) k/uL Basophils # (0-0.2) k/uL Poikilocytosis Anisocytosis Sodium (137-145) mmol/L Potassium (3.5-5.1) mmol/L Chloride (98-107) mmol/L Carbon Dioxide (22-30) mmol/L Anion Gap mmol/L BUN (7-17) mg/dL Creatinine (0.52-1.04) mg/dL Est GFR (CKD-EPI)AfAm (>60 ml/min/1.73 sqM) Est GFR (CKD-EPI)NonAf (>60 ml/min/1.73 sqM) Glucose (74-99) mg/dL Plasma Lactic Acid Qasim 0.8 (0.7-2.0) mmol/L Calcium (8.4-10.2) mg/dL Total Bilirubin (0.2-1.3) mg/dL AST (14-36) U/L ALT (4-34) U/L Alkaline Phosphatase (38-126) U/L Total Protein (6.3-8.2) g/dL Albumin (3.5-5.0) g/dL Amylase (30-110) U/L Lipase (23-300) U/L Urine Color Urine Appearance (Clear) Urine pH (5.0-8.0) Ur Specific [place] (1.001-1.035) Urine Protein (Negative) Urine Glucose (UA) (Negative) Urine Ketones (Negative) Urine Blood (Negative) Urine Nitrite (Negative) Urine Bilirubin (Negative) Urine Urobilinogen (<2.0) mg/dL Ur Leukocyte Esterase (Negative) Disposition Clinical Impression: Constipation, Abdominal pain, Enteritis Disposition: HOME SELF-CARE Condition: Stable Instructions (If sedation given, give patient instructions): Abdominal Pain (ED) Additional Instructions: Please return to the Emergency Department if symptoms worsen or any other concerns. Prescriptions: Ondansetron Odt [Zofran Odt] 4 mg PO Q8HR PRN #10 tab PRN Reason: Nausea Is patient prescribed a controlled substance at d/c from ED?: No Referrals: Killian Young MD [Primary Care Provider] - 1-2 days Time of Disposition: 11:17
[2020-08-18 10:32] LABS: ALT 26 U/L (4-34); AST 35 U/L (14-36); African American GFR (CKD) >90 (>60 ml/min/1.73 sqM); Albumin 4.4 g/dL (3.5-5.0); Alkaline Phosphatase 115 U/L (38-126); Amylase 54 U/L (30-110); Anion Gap 7 mmol/L; Blood Urea Nitrogen 10 mg/dL (7-17); Calcium 9.7 mg/dL (8.4-10.2); Carbon Dioxide 33 mmol/L (22-30); Chloride 97 mmol/L (98-107); Glucose 136 mg/dL (74-99); Lipase 117 U/L (23-300); Non-African American GFR(CKD) >90 (>60 ml/min/1.73 sqM); Potassium 3.8 mmol/L (3.5-5.1); Sodium 137 mmol/L (137-145); Total Protein 7.8 g/dL (6.3-8.2)
--- NOTE | 2020-08-18 10:59 | CT ---
EXAMINATION TYPE: CT abdomen pelvis w con DATE OF EXAM: 08/18/2020 COMPARISON: 03/29/2020 HISTORY: Abdominal pain CT DLP: 1217.6 mGycm CONTRAST: CT scan of the abdomen and pelvis is performed without Oral Contrast and with IV Contrast, patient in jected with 100 ml mL of Isovue 300. FINDINGS: LUNG BASES-: No visible nodule. No infiltrate. LIVER/GB: The gallbladder is surgically absent. No space occupying hepatic lesion. Biliary tree is of normal caliber. PANCREAS: No inflammation. No distinct mass. SPLEEN: No splenic enlargement. No lesion seen. ADRENALS: No nodule. No thickening. KIDNEYS/BLADDER: No hydronephrosis. No nephrolithiasis. No distinct renal mass. Urinary bladder g rossly unremarkable. BOWEL: Normal appendix. There is mild fluid distention of small bowel with mild wall thickening may r eflect enteritis. Large bowel is of normal caliber. No evidence for free air or abscess. Small fat-co ntaining ventral hernia to the right of midline at the level of the pancreatic head. No additional he rnias identified at this time. GENITAL ORGANS: No gross abnormality. LYMPH NODES: No greater than 1cm abdominal or pelvic lymph nodes are appreciated. AORTA: No significant abnormality. OSSEOUS STRUCTURES: No significant abnormality is seen. OTHER: No significant additional abnormality is seen. IMPRESSION: 1. There is mild fluid distention of small bowel with mild wall thickening may reflect enteritis. 2. Small fat-containing ventral hernia as noted above.
[2020-08-18] MEDS ORDERED: MAGNESIUM CITRATE 296 ML BOTTLE PO ONE (11:17)
[2020-08-18 11:33] VITALS: BP 136/64; PULSE 72; RESP 14
== END 2020-08-18 11:33 | disposition home or self-care (01) ==
LOC: EC 09:20
DX: K52.9 Noninfective gastroenteritis and colitis, unspecified (principal); J45.909 Unspecified asthma, uncomplicated; K21.9 Gastro-esophageal reflux disease without esophagitis; E78.5 Hyperlipidemia, unspecified; R73.03 Prediabetes; F32.9 Major depressive disorder, single episode, unspecified; Z79.899 Other long term (current) drug therapy; Z79.51 Long term (current) use of inhaled steroids; Z98.890 Other specified postprocedural states; Z88.1 Allergy status to other antibiotic agents; Z88.8 Allergy status to other drugs, medicaments and biological substances; Z85.3 Personal history of malignant neoplasm of breast; Z90.49 Acquired absence of other specified parts of digestive tract
CPT/HCPCS: 36415; 80053; 82150; 83605; 83690; 85025; 81003; 74177; 99284; 96374; 96375; 96361; J2270; J2405; Q9967

== ENCOUNTER 2020-09-07 06:53 | Emergency (ER) | payer OTHER ==
[2020-09-07 07:04] VITALS: RESP 18
[2020-09-07] MEDS ORDERED: ONDANSETRON 4 MG/2 ML VIAL IVP STA (07:26)
[2020-09-07] MEDS ORDERED: SODIUM CHLORIDE 0.9% 1,000 ML IV STA (07:26)
[2020-09-07] MEDS ORDERED: MORPHINE SULFATE 4 MG/ML SYRINGE IV STA (07:26)
--- NOTE | 2020-09-07 07:42 | ED ---
General Adult HPI - General Chief complaint: Abdominal Pain Stated complaint: Abdominal pain Time Seen by Provider: 09/07/20 07:08 Source: patient, RN notes reviewed Mode of arrival: ambulatory - History of Present Illness Initial comments: 55-year-old female with a past medical history of asthma, GERD, hyperlipidemia, breast cancer with maintenance chemo infusions presents to the emergency department for chief complaint of abdominal pain. Patient has had abdominal pain for about 1 month now. States it is this and is epigastric and sometimes lower abdomen. Patient does have a history of cholecystectomy. Patient does admit to nausea and vomiting. She denies diarrhea. Denies fevers or chills. Patient states she was seen here in the emergency room 20 days ago and told she had colitis. Patient had not followed up with her primary care since that time. She does have an appointment with her oncologist on Wednesday.Patient has no other complaints at this time including shortness of breath, chest pain, nausea or vomiting, headache, or visual changes. - Related Data Home Medications Medication Instructions Recorded Confirmed Cetirizine HCl [Zyrtec] 10 mg PO DAILY 10/06/19 02/05/20 Famotidine [Pepcid] 20 mg PO BID 10/06/19 02/05/20 Montelukast [Singulair] 10 mg PO DAILY 10/06/19 02/05/20 Sertraline [Zoloft] 100 mg PO HS 10/06/19 02/05/20 Atorvastatin Calcium [Lipitor] 20 mg PO HS 11/15/19 02/05/20 Fluticasone/Vilanterol [Breo 1 inhalation PO DAILY 11/15/19 02/05/20 Ellipta 100-25 Mcg Inhaler] Diphenox-Atrop 2.5-0.025 mg 1 - 2 tab PO QID PRN 02/05/20 02/05/20 [Lomotil] Non Formulary Drug 1 each IV ONCE 02/05/20 02/05/20 Prochlorperazine [Compazine] 10 mg PO Q8H 02/05/20 02/05/20 Ondansetron [Zofran] 4 mg PO Q8HR PRN 02/08/20 02/08/20 dexAMETHasone [Dexamethasone] 4 mg PO DIRECTED 02/08/20 02/08/20 Previous Rx's Medication Instructions Recorded Ondansetron Odt [Zofran Odt] 4 mg PO Q8HR PRN #10 tab 08/18/20 Amoxicillin/Potassium Clav 1 tab PO Q12HR #20 tab 09/07/20 [Augmentin 875-125 Tablet] Allergies Allergy/AdvReac Type Severity Reaction Status Date / Time ciprofloxacin [From Cipro] Allergy Swelling Verified 09/07/20 07:04 desloratadine [From Clarinex] Allergy Swelling Verified 09/07/20 07:04 loratadine [From Claritin] Allergy Swelling Verified 09/07/20 07:04 Review of Systems ROS Statement: Those systems with pertinent positive or pertinent negative responses have been documented in the HPI. ROS Other: All systems not noted in ROS Statement are negative. Past Medical History Past Medical History: Asthma, Cancer, GERD/Reflux, Hyperlipidemia Additional Past Medical History / Comment(s): borderline Diabetic diet controlled, breast cancer left History of Any Multi-Drug Resistant Organisms: None Reported Past Surgical History: Breast Surgery, Section, Cholecystectomy Additional Past Surgical History / Comment(s): 2012, 2015 left breast biopsies. finger surgery Past Anesthesia/Blood Transfusion Reactions: Postoperative Nausea & Vomiting (PONV) Additional Past Anesthesia/Blood Transfusion Reaction / Comment(s): once with a colonoscopy. no previous blood transfusion Past Psychological History: Depression Smoking Status: Former smoker Past Alcohol Use History: None Reported Past Drug Use History: None Reported - Past Family History Mother Family Medical History: Cancer, Deep Vein Thrombosis (DVT) Additional Family Medical History / Comment(s): breast Sister(s) Family Medical History: Cancer Additional Family Medical History / Comment(s): breast General Exam General appearance: alert, in no apparent distress Head exam: Present: atraumatic, normocephalic, normal inspection Eye exam: Present: normal appearance, PERRL, EOMI. Absent: scleral icterus, conjunctival injection, periorbital swelling ENT exam: Present: normal exam, mucous membranes moist Neck exam: Present: normal inspection, full ROM. Absent: tenderness, meningismus, lymphadenopathy Respiratory exam: Present: normal lung sounds bilaterally. Absent: respiratory distress, wheezes, rales, rhonchi, stridor Cardiovascular Exam: Present: regular rate, normal rhythm, normal heart sounds. Absent: systolic murmur, diastolic murmur, rubs, gallop, clicks GI/Abdominal exam: Present: soft, tenderness (minimal generalized abdominal tenderness), normal bowel sounds. Absent: distended, guarding, rebound, rigid Neurological exam: Present: alert Course Vital Signs 09/07/20 09/07/20 06:58 10:27 Temperature 98 F Pulse Rate 74 62 Respiratory 18 18 Rate Blood Pressure 137/84 153/92 O2 Sat by Pulse 97 98 Oximetry Medical Decision Making - Medical Decision Making Vitals are stable. Patient is well-appearing. Minimal generalized abdominal tenderness. CBC CMP unremarkable. Urinalysis is negative. CT abdomen and pelvis with contrast shows mild wall thickening left and sigmoid colon could reflect products of a mild uncomplicated acute colitis versus poor distention. No of bowel obstruction. No suspicious new or acute findings identified. Patient was given pain medication and Zofran. Pain has improved. She is able to keep down liquids, tolerating by mouth intake. Patient will be started on Augmentin. She will follow up with GI. She will return here for any worsening symptoms. - Lab Data Result diagrams: 09/07/20 07:55 09/07/20 07:55 Lab Results 09/07/20 09/07/20 09/07/20 Range/Units 07:55 07:55 07:55 WBC 6.2 (3.8-10.6) k/uL RBC 4.66 (3.80-5.40) m/uL Hgb 13.3 (11.4-16.0) gm/dL Hct 38.9 (34.0-46.0) % MCV 83.6 (80.0-100.0) fL MCH 28.6 (25.0-35.0) pg MCHC 34.2 (31.0-37.0) g/dL RDW 15.9 H (11.5-15.5) % Plt Count 108 L (150-450) k/uL MPV 7.2 Neutrophils % 77 % Lymphocytes % 14 % Monocytes % 5 % Eosinophils % 1 % Basophils % 1 % Neutrophils # 4.8 (1.3-7.7) k/uL Lymphocytes # 0.9 L (1.0-4.8) k/uL Monocytes # 0.3 (0-1.0) k/uL Eosinophils # 0.1 (0-0.7) k/uL Basophils # 0.1 (0-0.2) k/uL Poikilocytosis Slight Sodium 138 (137-145) mmol/L Potassium 3.5 (3.5-5.1) mmol/L Chloride 96 L (98-107) mmol/L Carbon Dioxide 36 H (22-30) mmol/L Anion Gap 6 mmol/L BUN 10 (7-17) mg/dL Creatinine 0.77 (0.52-1.04) mg/dL Est GFR (CKD-EPI)AfAm >90 (>60 ml/min/1.73 sqM) Est GFR (CKD-EPI)NonAf 86 (>60 ml/min/1.73 sqM) Glucose 128 H (74-99) mg/dL Calcium 9.7 (8.4-10.2) mg/dL Total Bilirubin 0.8 (0.2-1.3) mg/dL AST 33 (14-36) U/L ALT 22 (4-34) U/L Alkaline Phosphatase 108 (38-126) U/L Total Protein 7.9 (6.3-8.2) g/dL Albumin 4.5 (3.5-5.0) g/dL Amylase 55 (30-110) U/L Lipase 111 (23-300) U/L Urine Color Light Yellow Urine Appearance Clear (Clear) Urine pH 6.5 (5.0-8.0) Ur Specific [place] 1.007 (1.001-1.035) Urine Protein Negative (Negative) Urine Glucose (UA) Negative (Negative) Urine Ketones Negative (Negative) Urine Blood Negative (Negative) Urine Nitrite Negative (Negative) Urine Bilirubin Negative (Negative) Urine Urobilinogen <2.0 (<2.0) mg/dL Ur Leukocyte Esterase Negative (Negative) Disposition Clinical Impression: Abdominal pain, Colitis Disposition: HOME SELF-CARE Condition: Good Instructions (If sedation given, give patient instructions): Abdominal Pain (ED) Additional Instructions: Please take antibiotic as directed. Continue to take Zofran as needed for nausea. Follow-up with your oncologist on Wednesday. Follow up with GI as well. If symptoms are worsening return to the emergency room. Prescriptions: Amoxicillin/Potassium Clav [Augmentin 875-125 Tablet] 1 tab PO Q12HR #20 tab Is patient prescribed a controlled substance at d/c from ED?: No Referrals: Killian Young MD [Primary Care Provider] - 1-2 days Ana Maria Cooney MD [STAFF PHYSICIAN] - 1-2 days Time of Disposition: 10:54
[2020-09-07 09:47] LABS: Basophils # (A) 0.1 k/uL (0-0.2); Basophils % (A) 1 %; Eosinophils # (A) 0.1 k/uL (0-0.7); Eosinophils % (A) 1 %; HCT 38.9 % (34.0-46.0); HGB 13.3 gm/dL (11.4-16.0); Lymphocytes # (A) 0.9 k/uL (1.0-4.8); Lymphocytes % (A) 14 %; MCH 28.6 pg (25.0-35.0); MCHC 34.2 g/dL (31.0-37.0); MCV 83.6 fL (80.0-100.0); Mean Platelet Volume 7.2; Monocytes # (A) 0.3 k/uL (0-1.0); Monocytes % (A) 5 %; Neutrophils # (A) 4.8 k/uL (1.3-7.7); Neutrophils % (A) 77 %; Platelet Count 108 k/uL (150-450); Poikilocytosis Slight; RBC 4.66 m/uL (3.80-5.40); RDW 15.9 % (11.5-15.5); WBC 6.2 k/uL (3.8-10.6)
[2020-09-07 10:12] LABS: ALT 22 U/L (4-34); AST 33 U/L (14-36); African American GFR (CKD) >90 (>60 ml/min/1.73 sqM); Albumin 4.5 g/dL (3.5-5.0); Alkaline Phosphatase 108 U/L (38-126); Amylase 55 U/L (30-110); Anion Gap 6 mmol/L; Blood Urea Nitrogen 10 mg/dL (7-17); Calcium 9.7 mg/dL (8.4-10.2); Carbon Dioxide 36 mmol/L (22-30); Chloride 96 mmol/L (98-107); Glucose 128 mg/dL (74-99); Lipase 111 U/L (23-300); Non-African American GFR(CKD) 86 (>60 ml/min/1.73 sqM); Potassium 3.5 mmol/L (3.5-5.1); Sodium 138 mmol/L (137-145); Total Bilirubin 0.8 mg/dL (0.2-1.3); Total Protein 7.9 g/dL (6.3-8.2)
[2020-09-07 10:13] LABS: Appearance,Urine Clear (Clear); Bilirubin,Urine Negative (Negative); Blood,Urine Negative (Negative); Color,Urine Light Yellow; Glucose,Urine (UA) Negative (Negative); Ketones,Urine Negative (Negative); Leukocyte Esterase,Urine Negative (Negative); Nitrite,Urine Negative (Negative); PH, Urine 6.5 (5.0-8.0); Protein,Urine Negative (Negative); Specific Gravity,Urine 1.007 (1.001-1.035); Urobilinogen,Urine <2.0 mg/dL (<2.0)
[2020-09-07] MEDS ORDERED: HYDROmorphone 0.5 MG/0.5 ML SYRINGE IVP STA (10:34)
--- NOTE | 2020-09-07 10:37 | CT ---
EXAMINATION TYPE: CT abdomen pelvis w con DATE OF EXAM: 09/07/2020 HISTORY: Generalized pain for 3 weeks. History of breast cancer. CT DLP: 1082.4mGycm Automated Exposure Control for Dose Reduction was Utilized. CONTRAST: CT scan of the abdomen and pelvis is performed without oral but with IV Contrast, patient injected wi th 100 mL of Isovue 300. COMPARISON: CT abdomen and pelvis August 18, 2020. PET/CT March 29, 2020 FINDINGS: LUNG BASES: Partial visualization of bilateral breast implants with internal folds similar to prior.. LIVER/GB: Cholecystectomy clips redemonstrated. PANCREAS: No significant abnormality is seen. SPLEEN: Stable splenomegaly at 14.8 cm long axis axial image 20. Prominent splenule next image 23 red emonstrated. ADRENALS: No significant abnormality is seen. KIDNEYS: Symmetric cortical medullary uptake and excretion. Concerning solid or cystic renal mass or hydronephrosis seen bilaterally. BOWEL: Suboptimal evaluation of bowel without enteric contrast. No suspicious small or large bowel di latation. Normal-appearing appendix from CT in the right abdomen. Mild wall thickening involving the left and sigmoid colon. UTERUS/ADNEXA: Anteverted uterus. No adnexal masses. LYMPH NODES: No greater than 1cm abdominal or pelvic lymph nodes are appreciated. OSSEOUS STRUCTURES: Kumy-no-yuomwkko facet arthropathy in the lower lumbar spine. OTHER: No significant additional abnormality is seen. IMPRESSION: Mild wall thickening left and sigmoid colon could reflect products of a mild uncomplicate d acute colitis versus product of poor distention. No bowel obstruction. Otherwise no suspicious new or acute findings identified.
[2020-09-07] MEDS ORDERED: ACET/COD 300 MG/30 MG STARTER PACK 6 TAB BTL PO STA (11:21)
[2020-09-07 11:31] VITALS: BP 137/73; PULSE 72; TEMP 97.8
== END 2020-09-07 11:35 | disposition home or self-care (01) ==
LOC: EC 06:53
DX: K52.9 Noninfective gastroenteritis and colitis, unspecified (principal); J45.909 Unspecified asthma, uncomplicated; F32.9 Major depressive disorder, single episode, unspecified; K21.9 Gastro-esophageal reflux disease without esophagitis; E78.5 Hyperlipidemia, unspecified; R73.03 Prediabetes; Z79.51 Long term (current) use of inhaled steroids; Z79.899 Other long term (current) drug therapy; Z88.1 Allergy status to other antibiotic agents; Z88.8 Allergy status to other drugs, medicaments and biological substances; Z90.49 Acquired absence of other specified parts of digestive tract; Z87.891 Personal history of nicotine dependence
CPT/HCPCS: 36415; 80053; 82150; 83690; 85025; 81003; 74177; 99284; 96374; 96375 ×2; 96361; J2270; J2405; J1170; Q9967

== ENCOUNTER → 2020-09-09 | Outpatient (CLI) | payer OTHER ==
--- NOTE | 2020-09-09 19:19 | US ---
EXAMINATION TYPE: US abdomen limited DATE OF EXAM: 09/09/2020 COMPARISON: NONE CLINICAL HISTORY: D73.5 SPLEEN INFRACTION. Abdominal pain since 08/12/20. Hx cholecystectomy, left kt ast cancer. LUQ exam. EXAM MEASUREMENTS: Spleen: 13.87 cm Left Kidney: 10.0 x 4.6 x 5.1 cm Grayscale and color Doppler imaging performed. 1. Spleen: Appears enlarged, echotexture is homogenous. 2. Left Kidney: No hydronephrosis or masses seen IMPRESSION: Splenomegaly.
--- NOTE | 2020-09-09 19:21 | US ---
EXAMINATION TYPE: US transvaginal DATE OF EXAM: 09/09/2020 COMPARISON: CT dated 09/07/2020 CLINICAL HISTORY: Chronic pain toward the left side since 08/12/20. . Hx 2 C-Sections. Hx left b reast cancer. TECHNIQUE: Transvaginal (TV). Patient unable to fill bladder for prep. Organs not well seen TA. Date of LMP: Patient states her LMP was about age 50. EXAM MEASUREMENTS: Uterus: 4.7x 2.9 x 2.0 cm Endometrial Stripe: 0.18 cm Right Ovary: Not seen Left Ovary: Not seen 1. Uterus: Anteverted Appears heterogeneous and small in size. Limited due to shadowing. Hyperechoi c area seen in lower uterus/cervix measurin.7 x 0.4 x 0.4 cm. 2. Endometrium: Limited. 3. Right Ovary: Not seen 4. Left Ovary: Not seen 5. Bilateral Adnexa: Appears wnl 6. Posterior cul-de-sac: Limited visibility due to shadowing. IMPRESSION: Uterus is poorly defined. Ovaries not visualized.
--- NOTE | 2020-09-09 19:22 | XR ---
EXAMINATION TYPE: XR chest 2V DATE OF EXAM: 09/09/2020 COMPARISON: Prior chest x-ray 11/16/2019 HISTORY: Breast cancer, left lower rib pain, C 50.512 TECHNIQUE: Frontal and lateral views of the chest are obtained. FINDINGS: There is no focal air space opacity, pleural effusion, or pneumothorax seen. The cardiac silhouette size is within normal limits. Port is present in the right pectoral region, catheter exten ds the level of the superior vena cava. Bilateral tissue expanders are present of the breasts. The osseous structures are intact. IMPRESSION: No acute cardiopulmonary process.
== END | disposition home or self-care (01) ==
LOC: RADUSWWP 17:00
PROVIDERS: ATTEND Internal Medicine Hematology & Oncology
DX: R10.12 Left upper quadrant pain (principal); R16.1 Splenomegaly, not elsewhere classified; Z88.1 Allergy status to other antibiotic agents; Z88.8 Allergy status to other drugs, medicaments and biological substances; C50.512 Malignant neoplasm of lower-outer quadrant of left female breast
CPT/HCPCS: 71046; 76705; 76830

== ENCOUNTER → 2020-09-27 | Day surgery (SDC) | payer OTHER ==
[2020-09-26 11:37] VITALS: BMI 31.7
[~2020-09-27] MED LIST changes: -DEXAMETHASONE SOD PHOSPHATE 10 MG/ML 1 ML VIAL IV ONE; -HEPARIN SODIUM,PORCINE 5,000 UNIT/ML 1 ML VIAL SQ ONE; -HYDROmorphone 0.5 MG/0.5 ML SYRINGE IVP PRN; +LACTATED RINGERS 1,000 ML IV ONE; +LIDOCAINE 1% (10MG/ML) FOR IV START INTRADERMA ONE; -LIDOCAINE 1% 20 ML VIAL (10MG/ML) FOR IV START INTRADERMA PRN; +LIDOCAINE 1% INJ 10MG/ML (20 ML MDV) ONE; +ONDANSETRON 4 MG/2 ML VIAL ONE; +PROPOFOL 10 MG/ML 20 ML VIAL IV ONE; -Pre Op ABX Message 1 EACH MISC MISCELLANE ONE; -SCOPOLAMINE 1.5MG/72HR PATCH TRANSDERM ONE
[2020-09-27 12:01] VITALS: RESP 18; TEMP 97.8
--- NOTE | 2020-09-27 13:37 | P.PCN ---
Date of Procedure: 09/27/20 Procedure(s) Performed: Brief history: Patient is a pleasant 55-year-old white female scheduled for an elective upper endoscopy as well as colonoscopy as a part of evaluation of severe epigastric pain for the last 1 month duration. She is presently on Prilosec, Carafate and doing better. She also has prior history of colon polyps in and hence: Scheduled for colonoscopy today. Procedure performed: Esophagogastroduodenoscopy with biopsy Colonoscopy with biopsy Preoperative diagnosis: Epigastric pain History of colon polyps Anesthesia: MAC Procedure: After informed consent was obtained from the patient was brought into the endoscopy unit and IV sedation was administered by anesthesia under continuous monitoring. Initially upper endoscopy was done. The Olympus GF 160 video endoscope was inserted inserted into the mouth and esophagus intubated without any difficulty and was gradually advanced into the stomach and duodenum and carefully examined. The bulb and second part of the duodenum appeared normal. The scope was then withdrawn into the stomach adequately insufflated with air and upon careful examination the antrum had mild gastritis and biopsies were done from this area. The body, cardia and fundus appeared normal. The scope was then withdrawn into the esophagus. Small sliding-type well hernia noted. The GE junction was located at 36 cm to the incisors. It appeared regular with circumferential erythema consistent with LA grade a reflux esophagitis. Rest of the esophagus appeared normal. Patient tolerated the procedure well. At this time the patient continued to remain sedation. Initial digital rectal examination was normal. Olympus CF 160 video colonoscope was then inserted into the rectum and gradually advanced to the cecum without any difficulty. Careful examination was performed as the scope was gradually being withdrawn. The prep was excellent. In the base of the cecum there was patchy areas of erythema which was biopsied. The rest of the cecum, ascending colon, transverse colon, appeared normal. The descending colon there was a 3-4 mm polyp that was removed by cold biopsy. The sigmoid colon there was another 5 mm polyp that was removed by cold biopsy. Rest of the descending colon, sigmoid colon and rectum appeared normal. Retroflexion was performed in the rectum and no lesions were noted. Patient tolerated the procedure well. Impression: 1. Upper endoscopy revealed mild antral gastritis, LA grade A reflux esophagitis small hiatal hernia 2. Colonoscopy revealed patchy areas of erythema in the base of the cecum that was biopsied. 5 mm polyp in the descending colon and sigmoid colon status post biopsy. Recommendations: Findings of this examination were discussed with the patient as well as her family. She was advised to follow with the biopsy results. She will continue with Prilosec and Carafate for epigastric pain. She can have a repeat colonoscopy in 5 years from now because of the colon polyps.
[2020-09-27 14:02] VITALS: BP 103/64; PULSE 65
== END ==
LOC: ORWHC2ENDO 10:35
PROVIDERS: ATTEND Internal Medicine Gastroenterology
DX: Z12.11 Encounter for screening for malignant neoplasm of colon (principal); K52.9 Noninfective gastroenteritis and colitis, unspecified; D12.4 Benign neoplasm of descending colon; K63.5 Polyp of colon; K29.50 Unspecified chronic gastritis without bleeding; R89.7 Abnormal histological findings in specimens from other organs, systems and tissues; K44.9 Diaphragmatic hernia without obstruction or gangrene; K21.00 Gastro-esophageal reflux disease with esophagitis, without bleeding; E78.5 Hyperlipidemia, unspecified; J45.909 Unspecified asthma, uncomplicated; C50.912 Malignant neoplasm of unspecified site of left female breast; E11.9 Type 2 diabetes mellitus without complications; F32.9 Major depressive disorder, single episode, unspecified; Z86.010 Personal history of colon polyps; Z79.899 Other long term (current) drug therapy; Z79.811 Long term (current) use of aromatase inhibitors; Z79.51 Long term (current) use of inhaled steroids; Z88.1 Allergy status to other antibiotic agents; Z88.8 Allergy status to other drugs, medicaments and biological substances; Z91.89 Other specified personal risk factors, not elsewhere classified
CPT/HCPCS: 88305; 45380; 43239; J2405; J2001; J2704

== ENCOUNTER → 2020-10-05 | Outpatient (CLI) | payer OTHER ==
--- NOTE | 2020-10-07 06:20 | PE ---
EXAMINATION TYPE: PET CT fusion skull to thigh DATE OF EXAM: 10/05/2020 COMPARISON: Prior PET/CT March 29, 2020 and November 17, 2019. Most recent CT abdomen and pelvis study September 07, 2020 HISTORY: Left-sided breast cancer progress study diagnosed October 2019. History of bilateral maste ctomy April 23, 2020. TECHNIQUE: Following the intravenous administration of 10.265 mCi of F-18 FDG, whole body images are performed from the skull base to the midthigh. Images are reviewed on the computer in the coronal, axial, and sagittal planes. Reconstructed rotating images are created on independent workstation and reviewed on the computer. A localization and attenuation correction CT is performed in conjunction with the PET scan. SCAN: Subsequent Scan FINDINGS: SKULL BASE AND NECK: No new areas of abnormal hypermetabolic uptake. CHEST, MEDIASTINUM, AND HILAR REGION: Interval bilateral mastectomy with placement of bilateral impla nts. Surgical clips left axillary region noted. No suspicious left breast mass or axillary adenopathy . Interval resolution of abnormal hypermetabolic uptake and opacities in the lower lungs. No new or p ersistent areas of abnormal hypermetabolic uptake are noted. ABDOMEN AND PELVIS: Nonspecific bowel uptake. Normal excretion. No new areas of abnormal hypermetabol ic uptake. OSSEOUS STRUCTURES: No new areas of abnormal hypermetabolic uptake. OTHER CT: Stable right internal jugular Mediport catheter. Mild calcified plaque bilateral carotid bu lb level. Prominent main pulmonary artery. CT findings suggesting underlying pulmonary artery hypertension. Cho lecystectomy clips. Lower lumbar facet arthropathy. IMPRESSION: Interval surgical treatment from most recent PET/CT. No persistent or new areas of abnorm al hypermetabolic uptake to suggest persistent active malignancy.
== END | disposition home or self-care (01) ==
LOC: RADPETMAIN 07:48
PROVIDERS: ATTEND Internal Medicine Hematology & Oncology
DX: C50.512 Malignant neoplasm of lower-outer quadrant of left female breast (principal); Z92.21 Personal history of antineoplastic chemotherapy; Z90.13 Acquired absence of bilateral breasts and nipples; Z98.82 Breast implant status
CPT/HCPCS: 78815; A9552

== ENCOUNTER 2021-02-15 09:07 | Emergency (ER) | payer OTHER ==
[2021-02-15 09:12] VITALS: RESP 18; TEMP 98.2
--- NOTE | 2021-02-15 09:35 | ED ---
General Adult HPI - General Chief complaint: Recheck/Abnormal Lab/Rx Stated complaint: Recheck/Port in Neck is Swollen Time Seen by Provider: 02/15/21 09:12 Source: patient, RN notes reviewed Mode of arrival: ambulatory Limitations: no limitations - History of Present Illness Initial comments: This a 56-year-old female presents emergency Department with chief complaint of right-sided chest port pain. Patient states started over nighttime. She states it for has not been using over 3 months. She did admit that she had recent breast reconstruction surgery. She is unsure if that happened. She denies any trauma no shortness of breath states it just feels swollen, tender over the area denies any redness no rashes. Patient had chest port secondary to breast cancer with chemotherapy treatment - Related Data Home Medications Medication Instructions Recorded Confirmed Cetirizine HCl [Zyrtec] 10 mg PO DAILY 10/06/19 09/26/20 Famotidine [Pepcid] 20 mg PO BID 10/06/19 09/26/20 Montelukast [Singulair] 10 mg PO DAILY 10/06/19 09/26/20 Sertraline [Zoloft] 100 mg PO HS 10/06/19 09/26/20 Atorvastatin Calcium [Lipitor] 20 mg PO HS 11/15/19 09/26/20 Fluticasone/Vilanterol [Breo 1 inhalation PO DAILY 11/15/19 09/26/20 Ellipta 100-25 Mcg Inhaler] Diphenox-Atrop 2.5-0.025 mg 1 - 2 tab PO QID PRN 02/05/20 09/26/20 [Lomotil] Ondansetron [Zofran] 4 mg PO Q8HR PRN 02/08/20 09/26/20 Dicyclomine [Bentyl] 10 mg PO BID 09/26/20 09/26/20 Letrozole [Femara] 2.5 mg PO DAILY 09/26/20 09/26/20 Nystatin 100,000 Unit/ml Susp 1 tsp PO DIRECTED 09/26/20 09/26/20 [Mycostatin Oral Susp] OLANZapine [ZyPREXA] 5 mg PO HS 09/26/20 09/26/20 Omeprazole [PriLOSEC] 20 mg PO AC-BID 09/26/20 09/26/20 Sucralfate [Carafate] 2 tab PO BID 09/26/20 09/26/20 Allergies Allergy/AdvReac Type Severity Reaction Status Date / Time ciprofloxacin [From Cipro] Allergy Swelling Verified 02/15/21 09:08 of lips desloratadine [From Clarinex] Allergy Swelling Verified 02/15/21 09:08 of lips loratadine [From Claritin] Allergy Swelling Verified 02/15/21 09:08 of lips Review of Systems ROS Statement: Those systems with pertinent positive or pertinent negative responses have been documented in the HPI. ROS Other: All systems not noted in ROS Statement are negative. 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) History of Any Multi-Drug Resistant Organisms: None Reported Past Surgical History: Breast Surgery, Section, Cholecystectomy Additional Past Surgical History / Comment(s): left breast biopsies, C/S x2, finger surgery for abscess for left index finger, mitesh mastectomy, breast reconstruction Past Anesthesia/Blood Transfusion Reactions: Postoperative Nausea & Vomiting (PONV) Additional Past Anesthesia/Blood Transfusion Reaction / Comment(s): no previous blood transfusion, Past Psychological History: Depression Smoking Status: Former smoker Past Alcohol Use History: None Reported Past Drug Use History: None Reported - Past Family History Mother Family Medical History: Cancer, Deep Vein Thrombosis (DVT) Additional Family Medical History / Comment(s): breast Sister(s) Family Medical History: Cancer Additional Family Medical History / Comment(s): breast Father Family Medical History: Cancer General Exam Limitations: no limitations General appearance: alert, in no apparent distress Head exam: Present: atraumatic, normocephalic, normal inspection Eye exam: Present: normal appearance, PERRL, EOMI. Absent: scleral icterus, conjunctival injection, periorbital swelling ENT exam: Present: normal exam, normal oropharynx, mucous membranes moist Neck exam: Present: normal inspection, full ROM. Absent: tenderness, lymphadenopathy Respiratory exam: Present: normal lung sounds bilaterally, chest wall tenderness (Mild right-sided over area of chest port which is palpable, no erythema no obvious swelling). Absent: respiratory distress, wheezes, rales, rhonchi, stridor Cardiovascular Exam: Present: regular rate, normal rhythm, normal heart sounds. Absent: systolic murmur, diastolic murmur, rubs, gallop, clicks GI/Abdominal exam: Present: soft, normal bowel sounds. Absent: distended, tenderness, guarding, rebound, rigid Course Vital Signs 02/15/21 09:09 Temperature 98.2 F Pulse Rate 71 Respiratory 18 Rate Blood Pressure 135/77 O2 Sat by Pulse 96 Oximetry Medical Decision Making - Medical Decision Making Ultrasound was unremarkable no evidence of thrombus, x-ray malleolus she is asymptomatic and not definite acute infiltrate. Patient will be discharged in stable condition is labwork is unremarkable return parameters were discussed. - Lab Data Result diagrams: 02/15/21 09:41 02/15/21 09:41 Lab Results 02/15/21 02/15/21 02/15/21 Range/Units 09:41 09:41 09:41 WBC 5.9 (3.8-10.6) k/uL RBC 4.80 (3.80-5.40) m/uL Hgb 13.0 (11.4-16.0) gm/dL Hct 38.2 (34.0-46.0) % MCV 79.7 L (80.0-100.0) fL MCH 27.2 (25.0-35.0) pg MCHC 34.1 (31.0-37.0) g/dL RDW 17.1 H (11.5-15.5) % Plt Count 167 (150-450) k/uL MPV 6.8 Neutrophils % 73 % Lymphocytes % 15 % Monocytes % 5 % Eosinophils % 4 % Basophils % 1 % Neutrophils # 4.4 (1.3-7.7) k/uL Lymphocytes # 0.9 L (1.0-4.8) k/uL Monocytes # 0.3 (0-1.0) k/uL Eosinophils # 0.2 (0-0.7) k/uL Basophils # 0.1 (0-0.2) k/uL Anisocytosis Slight Microcytosis Slight PT 9.9 (9.0-12.0) sec INR 0.9 (<1.2) APTT 23.4 (22.0-30.0) sec Sodium 138 (137-145) mmol/L Potassium 4.4 (3.5-5.1) mmol/L Chloride 102 (98-107) mmol/L Carbon Dioxide 28 (22-30) mmol/L Anion Gap 8 mmol/L BUN 12 (7-17) mg/dL Creatinine 0.73 (0.52-1.04) mg/dL Est GFR (CKD-EPI)AfAm >90 (>60 ml/min/1.73 sqM) Est GFR (CKD-EPI)NonAf >90 (>60 ml/min/1.73 sqM) Glucose 136 H (74-99) mg/dL Calcium 9.5 (8.4-10.2) mg/dL Total Bilirubin 0.4 (0.2-1.3) mg/dL AST 24 (14-36) U/L ALT 22 (4-34) U/L Alkaline Phosphatase 105 (38-126) U/L Total Protein 7.5 (6.3-8.2) g/dL Albumin 4.3 (3.5-5.0) g/dL Disposition Clinical Impression: Chest wall pain Disposition: HOME SELF-CARE Condition: Stable Instructions (If sedation given, give patient instructions): Implanted Venous Access Port (DC) Additional Instructions: Please return to the Emergency Department if symptoms worsen or any other concerns. Is patient prescribed a controlled substance at d/c from ED?: No Referrals: Killian Young MD [Primary Care Provider] - 1-2 days Time of Disposition: 11:07
--- NOTE | 2021-02-15 09:54 | XR ---
EXAMINATION TYPE: XR chest 2V DATE OF EXAM: 02/15/2021 COMPARISON: 09/09/2020 INDICATION: Pain over right side port TECHNIQUE: Frontal and lateral views of the chest are obtained. FINDINGS: The heart size is normal. The pulmonary vasculature is normal. Mild left lung infiltrate is present. This is nonspecific.. No suspicious abnormalities evident at t he right-sided port. Tip is at superior vena cava region. IMPRESSION: 1. Suggestive of mild left lung infiltrate. Findings are nonspecific. Atelectasis and pneumonia shoul d be considered. Consider atypical pneumonia.
[2021-02-15 10:01] LABS: Anisocytosis Slight; Basophils # (A) 0.1 k/uL (0-0.2); Basophils % (A) 1 %; Eosinophils # (A) 0.2 k/uL (0-0.7); Eosinophils % (A) 4 %; HCT 38.2 % (34.0-46.0); Lymphocytes # (A) 0.9 k/uL (1.0-4.8); Lymphocytes % (A) 15 %; MCH 27.2 pg (25.0-35.0); MCHC 34.1 g/dL (31.0-37.0); MCV 79.7 fL (80.0-100.0); Mean Platelet Volume 6.8; Microcytosis Slight; Monocytes # (A) 0.3 k/uL (0-1.0); Monocytes % (A) 5 %; Neutrophils # (A) 4.4 k/uL (1.3-7.7); Neutrophils % (A) 73 %; Platelet Count 167 k/uL (150-450); RDW 17.1 % (11.5-15.5); WBC 5.9 k/uL (3.8-10.6)
[2021-02-15 10:14] LABS: INR 0.9 (<1.2); Partial Thromboplastin Time 23.4 sec (22.0-30.0); Prothrombin Time 9.9 sec (9.0-12.0)
[2021-02-15 10:15] LABS: ALT 22 U/L (4-34); AST 24 U/L (14-36); African American GFR (CKD) >90 (>60 ml/min/1.73 sqM); Albumin 4.3 g/dL (3.5-5.0); Alkaline Phosphatase 105 U/L (38-126); Anion Gap 8 mmol/L; Blood Urea Nitrogen 12 mg/dL (7-17); Calcium 9.5 mg/dL (8.4-10.2); Carbon Dioxide 28 mmol/L (22-30); Chloride 102 mmol/L (98-107); Glucose 136 mg/dL (74-99); Non-African American GFR(CKD) >90 (>60 ml/min/1.73 sqM); Potassium 4.4 mmol/L (3.5-5.1); Sodium 138 mmol/L (137-145); Total Bilirubin 0.4 mg/dL (0.2-1.3); Total Protein 7.5 g/dL (6.3-8.2)
--- NOTE | 2021-02-15 10:50 | US ---
EXAMINATION TYPE: US venous doppler duplex UE RT DATE OF EXAM: 02/15/2021 COMPARISON: NONE CLINICAL HISTORY: pain. Patient has indwelling port in chest. SIDE PERFORMED: Right Line is seen in medial subclavian extending into IJV. No thrombus noted around line. Right Arm: Negative for DVT IMPRESSION: 1. No definite deep venous thrombosis right upper extremity.
[2021-02-15 11:08] VITALS: BP 138/61; PULSE 62
== END 2021-02-15 11:29 | disposition home or self-care (01) ==
LOC: EC 09:07
DX: R07.89 Other chest pain (principal); R22.1 Localized swelling, mass and lump, neck; J45.909 Unspecified asthma, uncomplicated; E78.5 Hyperlipidemia, unspecified; K21.9 Gastro-esophageal reflux disease without esophagitis; F32.9 Major depressive disorder, single episode, unspecified; Z85.3 Personal history of malignant neoplasm of breast; Z87.891 Personal history of nicotine dependence; Z79.51 Long term (current) use of inhaled steroids; Z79.899 Other long term (current) drug therapy; Z90.12 Acquired absence of left breast and nipple
CPT/HCPCS: 36415; 71046; 80053; 85025; 85610; 85730; 99285

== ENCOUNTER 2021-04-11 07:27 | Day surgery (SDC) | payer OTHER ==
[2021-04-09 10:15] VITALS: BMI 33.0
[~2021-04-11 07:27] MED LIST changes: +DEXAMETHASONE SOD PHOSPHATE 4 MG/ML 1 ML VIAL IV ONE; +HYDROmorphone 0.5 MG/0.5 ML SYRINGE IVP PRN; -LACTATED RINGERS 1,000 ML IV ONE; -LIDOCAINE 1% (10MG/ML) FOR IV START INTRADERMA ONE; -LIDOCAINE 1% INJ 10MG/ML (20 ML MDV) ONE; +MIDAZOLAM 2 MG/2 ML VIAL IV PRN; +ONDANSETRON 4 MG/2 ML VIAL IVP ONE; -ONDANSETRON 4 MG/2 ML VIAL ONE; -PROPOFOL 10 MG/ML 20 ML VIAL IV ONE; +SCOPOLAMINE 1.5MG/72HR PATCH TRANSDERM ONE
[2021-04-11 08:00] VITALS: TEMP 98.1
[2021-04-11] MEDS ORDERED: LIDOCAINE 1% (10MG/ML) FOR IV START INTRADERMA ONE (08:15)
[2021-04-11 08:19] LABS: Glucose,Whole Blood 143 mg/dL (75-99)
--- NOTE | 2021-04-11 08:19 | P.GSHP ---
History of Present Illness H&P Date: 04/11/21 Chief Complaint: Left breast cancer 56-year-old female comes today for Port-A-Cath removal. Port was last used in November. No issues with the port. She underwent her definitive breast surgery at . Past Medical History Past Medical History: Asthma, Cancer, Diabetes Mellitus, GERD/Reflux, Hyperlipidemia Additional Past Medical History / Comment(s): borderline Diabetic diet controlled, dx. left breast & lymph node cancer 2019,(targeted therapy- martín)-finished radiation in , chemo done in 2020 History of Any Multi-Drug Resistant Organisms: None Reported Past Surgical History: Breast Surgery, Section, Cholecystectomy Additional Past Surgical History / Comment(s): left breast biopsies, C/S x2, finger surgery for abscess for left index finger, mitesh mastectomy, mediport insertion,breast reconstruction January 2021 Past Anesthesia/Blood Transfusion Reactions: Postoperative Nausea & Vomiting (PONV) Additional Past Anesthesia/Blood Transfusion Reaction / Comment(s): no previous blood transfusion Smoking Status: Former smoker - Past Family History Mother Family Medical History: Cancer, Deep Vein Thrombosis (DVT) Additional Family Medical History / Comment(s): breast Sister(s) Family Medical History: Cancer Additional Family Medical History / Comment(s): breast Father Family Medical History: Cancer Medications and Allergies Home Medications Medication Instructions Recorded Confirmed Type Cetirizine HCl [Zyrtec] 10 mg PO DAILY 10/06/19 04/09/21 History Famotidine [Pepcid] 20 mg PO BID 10/06/19 04/09/21 History Montelukast [Singulair] 10 mg PO DAILY 10/06/19 04/09/21 History Sertraline [Zoloft] 100 mg PO HS 10/06/19 04/09/21 History Atorvastatin Calcium [Lipitor] 20 mg PO HS 11/15/19 04/09/21 History Fluticasone/Vilanterol [Breo 1 inhalation PO DAILY 11/15/19 04/09/21 History Ellipta 100-25 Mcg Inhaler] Diphenox-Atrop 2.5-0.025 mg 1 - 2 tab PO QID PRN 02/05/20 04/09/21 History [Lomotil] Ondansetron [Zofran] 4 mg PO Q8HR PRN 02/08/20 04/09/21 History Letrozole [Femara] 2.5 mg PO DAILY 09/26/20 04/09/21 History Omeprazole [PriLOSEC] 20 mg PO AC-BID 09/26/20 04/09/21 History Allergies Allergy/AdvReac Type Severity Reaction Status Date / Time ciprofloxacin [From Cipro] Allergy Swelling Verified 04/11/21 07:51 of lips desloratadine [From Clarinex] Allergy Swelling Verified 04/11/21 07:51 of lips loratadine [From Claritin] Allergy Swelling Verified 04/11/21 07:51 of lips Surgical - Exam Vital Signs Temp Resp BP Pulse Ox 98.1 F 16 116/57 97 04/11/21 07:58 04/11/21 07:58 04/11/21 07:58 04/11/21 07:58 Physical exam: General: Well-developed, well-nourished HEENT: Normocephalic, sclerae nonicteric Chest: Right sided Port-A-Cath in place Abdomen: Nontender, nondistended Extremities: No edema Neuro: Alert and oriented Assessment and Plan (1) Breast cancer, left Narrative/Plan: 56-year-old female completed her treatment for left breast cancer. We'll remove the port at this time. Risks of bleeding, infection, scarring reviewed. She understands and wishes to proceed. Current Visit: No Status: Acute Code(s): C50.912 - MALIGNANT NEOPLASM OF UNSPECIFIED SITE OF LEFT FEMALE BREAST SNOMED Code(s): 610674665
[2021-04-11] MEDS ORDERED: HEPARIN SODIUM,PORCINE/PF 5,000 UNIT/0.5 ML SYRINGE SQ ONE (08:20)
[2021-04-11] MEDS ORDERED: PROPOFOL 10 MG/ML 20 ML VIAL IV ONE (08:29)
[2021-04-11] MEDS ORDERED: fentaNYL (PF) 50 MCG/ML 2 ML AMP ONE (08:29)
[2021-04-11] MEDS ORDERED: MIDAZOLAM 2 MG/2 ML VIAL ONE (08:29)
[2021-04-11] MEDS ORDERED: LIDOCAINE (PF) 10 MG/ML 5ML AMP SQ ONE ×2 (08:46)
[2021-04-11 09:09] VITALS: RESP 17
[2021-04-11] MEDS ORDERED: NALOXONE 0.4 MG/ML 1 ML VIAL IV PRN (09:11)
--- NOTE | 2021-04-11 09:12 | P.OP ---
Date of Procedure: 04/11/21 Procedure(s) Performed: PREOPERATIVE DIAGNOSIS: Left breast cancer POSTOPERATIVE DIAGNOSIS: Same PROCEDURE: Port-A-Cath removal SURGEON: Demetris EBL: Minimal ANESTHESIA: Sedation COMPLICATIONS: None OPERATIVE PROCEDURE: Patient was placed in the supine position. The patient was sedated per anesthesia that time. The chest was prepped and draped in the usual sterile fashion. The skin was localized with Marcaine solution. The previous incision was re-incised using a scalpel. The port was easily excised using accommodation of blunt dissection sharp dissection and electrocautery. The subcutaneous tissues were reapproximated using 3-0 Vicryl sutures. The skin was reapproximated using 4-0 Monocryl sutures. Skin glue was then applied. DISPOSITION: Stable to recovery room
[2021-04-11 09:17] VITALS: BP 118/78; PULSE 66
== END 2021-04-11 09:45 | disposition home or self-care (01) ==
LOC: OR 07:27
PROVIDERS: ATTEND Surgery
DX: Z45.2 Encounter for adjustment and management of vascular access device (principal); C50.912 Malignant neoplasm of unspecified site of left female breast; J45.909 Unspecified asthma, uncomplicated; E11.9 Type 2 diabetes mellitus without complications; K21.9 Gastro-esophageal reflux disease without esophagitis; E78.5 Hyperlipidemia, unspecified; Z87.891 Personal history of nicotine dependence; F32.9 Major depressive disorder, single episode, unspecified; Z79.899 Other long term (current) drug therapy; Z88.1 Allergy status to other antibiotic agents; Z88.8 Allergy status to other drugs, medicaments and biological substances
CPT/HCPCS: 36590; J2250; J1100; J0690; J2405; J2001; J3010; J2704; J1644

== ENCOUNTER → 2021-05-06 | Outpatient (CLI) | payer OTHER ==
--- NOTE | 2021-05-07 09:05 | XR ---
EXAMINATION TYPE: XR chest 2V DATE OF EXAM: 05/06/2021 COMPARISON: 02/15/2021 TECHNIQUE: PA and lateral views submitted. HISTORY: Chest pain FINDINGS: The lungs are clear and there is no pneumothorax, pleural effusion, or focal pneumonia. Postsurgica l change overlying the right chest. Heart size normal. No overt failure. Interstitium is stable from prior exam. Mild prominence of the left suprahilar region degenerative changes spine. IMPRESSION: 1. No acute process. Mild prominence of the left hilum may reflect the pulmonary artery, however, CT of the chest is recommended to exclude other etiologies.
== END | disposition home or self-care (01) ==
LOC: RADXRMAIN 17:20
PROVIDERS: ATTEND Nurse Practitioner Adult Health
DX: R07.9 Chest pain, unspecified (principal)
CPT/HCPCS: 71046

== ENCOUNTER → 2021-06-03 | Outpatient (CLI) | payer OTHER ==
--- NOTE | 2021-06-03 16:02 | CT ---
EXAMINATION TYPE: CT chest w con DATE OF EXAM: 06/03/2021 COMPARISON: HISTORY: abnormal cxr, hx of breast ca CT DLP: 497.3 mGycm Automated exposure control for dose reduction was used. CONTRAST: CT scan of the chest is performed with IV Contrast, patient injected with 100 mL of Isovue 300. FINDINGS: LUNGS: Post radiation therapy change left upper lobe anteriorly. The lungs are grossly clear, there i s no concerning parenchymal mass or nodule identified. There is no pleural effusion or pneumothorax seen. The tracheobronchial tree is patent. MEDIASTINUM: There are no greater than 1 cm hilar or mediastinal lymph nodes. No pericardial effusi on is seen. Thoracic aorta is of normal caliber. The heart is not enlarged. UPPER ABDOMEN: No significant abnormality appreciated. OTHER: Bilateral breast implants. IMPRESSION: Post radiation therapy change left upper lobe anteriorly.
== END | disposition home or self-care (01) ==
LOC: RADECHMAIN 14:59
PROVIDERS: ATTEND Internal Medicine Hematology & Oncology
DX: Z85.3 Personal history of malignant neoplasm of breast (principal)
CPT/HCPCS: 93306; 71260; Q9967

== ENCOUNTER → 2021-06-20 | Outpatient (CLI) | payer OTHER ==
--- NOTE | 2021-06-20 15:41 | NM ---
EXAMINATION TYPE: NM bone scan whole body DATE OF EXAM: 06/20/2021 COMPARISON: CT chest 06/03/2021 HISTORY: Breast cancer Delayed whole-body scanning was performed following the injection of 23.3 mCi Tc 99m MDP. Images acq uired 3 hours post injection. FINDINGS: Uptake involving the feet, knees, and shoulders nonspecific but likely degenerative. There is abnormal uptake involving the left rib cage anteriorly for which x-ray is recommended. Uptak e along the right paraspinal line at the level of L5-S1 for which x-ray is recommended. Mild increased uptake throughout the thoracic and lumbar spine likely degenerative. IMPRESSION: 1. There are focal areas of abnormal uptake involving the anterior margin of the left rib cage which appear to correspond to rib fractures on the recent CT scan. 2. Nonspecific uptake along the right paraspinal line. X-ray of the lumbar spine recommended
== END | disposition home or self-care (01) ==
LOC: RADNMMAIN 11:36
PROVIDERS: ATTEND Internal Medicine Hematology & Oncology
DX: C50.919 Malignant neoplasm of unspecified site of unspecified female breast (principal)
CPT/HCPCS: 78306; A9503

== ENCOUNTER → 2021-09-22 | Outpatient (CLI) | payer OTHER ==
--- NOTE | 2021-09-22 16:01 | BD ---
EXAMINATION TYPE: Axial Bone Density DATE OF EXAM: 09/22/2021 COMPARISON: NONE CLINICAL HISTORY: Height: 5 FT Weight: 191 FRAX RISK QUESTIONS: Alcohol (3 or more units per day): NO Family History (Parent hip fracture): NO Glucocorticoids (More than 3mos): NO (Ex: prednisone, prednisolone, methylprednisolone, dexamethasone, and hydrocortisone). History of Fracture in Adulthood: NO Secondary Osteoporosis: 1. Type 1 Diabetes: NO 2. Hyperthyroidism: NO 3. Menopause before 45: NO 4. Malnutrition: NO 5. Chronic liver disease: NO Rheumatoid Arthritis: NO Current Tobacco Use: NO RISK FACTORS HISTORY OF: Surgery to Spine/Hip(right/left)/Wrist (right/left): NO Family History of Osteoporosis: NO Active: NO Diet low in dairy products/other sources of calcium: NO Postmenopausal woman: YES Take estrogen and/or progesterone medications: NO Lost more than 2 inches in height since high school: Frequent falls: NO Poor Health: GOOD Hyperparathyroidism: NO Adrenal Insufficiency: NO MEDICATIONS: Additional Medications: FEMARA ,BREO INHALER,LIPITOR, EFFEXOR, ALLERGIES,PRILOSEC, PEPCID,VIT D Additional History: BREAST CANCER 2019 RADIATION AND CHEMO EXAM MEASUREMENTS: Bone mineral densitometry was performed using the [employer] System. Bone mineral density as measured about the Lumbar spine is: ----- L1-L4(G/cm2): 1.172 T Score Values are as follows: ----- L2: -0.3 ----- L3: 0.6 ----- L4: 0.1 ----- L1-L4: -0.1 Bone mineral density has: DECREASED -4.8 % since study of: 2018 Bone mineral density about the R hip (g/cm2): 0.860 Bone mineral density about the L hip (g/cm2): 0.846 T Score values are as follows: -----R Neck: -1.3 -----L Neck: -1.4 -----R Total: -0.2 -----L Total: -0.2 Bone mineral density has: DECREASED -4.5 % since study of: 2019 IMPRESSION: Osteopenia (T Score between -2.5 and -1). There is slightly increased risk of fracture and the patient may be considered for treatment. Re-Screen 2-5 years. NOTE: T-SCORE=SD OF THE YOUNG ADULT MEAN.
== END | disposition home or self-care (01) ==
LOC: RADBDWWP 09:55
PROVIDERS: ATTEND Internal Medicine Hematology & Oncology
DX: M85.89 Other specified disorders of bone density and structure, multiple sites (principal); Z78.0 Asymptomatic menopausal state
CPT/HCPCS: 77080

== ENCOUNTER → 2022-03-13 | Outpatient (CLI) | payer OTHER ==
--- NOTE | 2022-03-15 10:54 | PE ---
EXAMINATION TYPE: PET CT fusion skull to thigh DATE OF EXAM: 03/13/2022 COMPARISON: Prior PET/CT October 05, 2020 and older studies HISTORY: Left-sided breast cancer diagnosed 2019 with surgery 2020 TECHNIQUE: Following the intravenous administration of 10.45 mCi of F-18 FDG, whole body images are performed from the skull base to the midthigh. Images are reviewed on the computer in the coronal, a xial, and sagittal planes. Reconstructed rotating images are created on independent workstation and reviewed on the computer. A localization and attenuation correction CT is performed in conjunction with the PET scan. Blood glucose level equals 83 SCAN: Subsequent Scan FINDINGS: SKULL BASE AND NECK: No new areas of abnormal hypermetabolic uptake. CHEST, MEDIASTINUM, AND HILAR REGION: Interval bilateral bilateral mastectomy with bilateral implants redemonstrated. Surgical (scar left axillary region noted. No suspicious left breast mass or axillar y adenopathy. No new areas of abnormal hypermetabolic uptake are noted. ABDOMEN AND PELVIS: Nonspecific bowel uptake is more prominent on current study. Normal excretion. No additional new areas of abnormal hypermetabolic uptake. OSSEOUS STRUCTURES: No new areas of abnormal hypermetabolic uptake. OTHER CT: Interval removal right internal jugular Mediport catheter. Mild calcified plaque bilateral carotid bulb level redemonstrated. Prominent main pulmonary artery. CT findings consistent with underlying pulmonary artery hypertension . Cholecystectomy clips redemonstrated. Lower lumbar facet arthropathy. IMPRESSION: No new areas of abnormal hypermetabolic uptake to suggest recurrent active malignancy.
== END | disposition home or self-care (01) ==
LOC: RADPETMAIN 16:50
PROVIDERS: ATTEND Internal Medicine Hematology & Oncology
DX: C50.512 Malignant neoplasm of lower-outer quadrant of left female breast (principal)
CPT/HCPCS: 78815; A9552

== ENCOUNTER → 2023-05-15 | Outpatient (CLI) | payer BC ==
--- NOTE | 2023-05-16 09:19 | PE ---
EXAMINATION TYPE: PET CT fusion skull to thigh DATE OF EXAM: 05/15/2023 CLINICAL INDICATION:Female, 58 years old with history of C50.512; TECHNIQUE: Following the intravenous administration of 9.2 mCi of F-18 FDG, whole body images are p erformed from the skull base to the midthigh. Images are reviewed on the computer in the coronal, ax ial, and sagittal planes. Reconstructed rotating images are created on independent workstation and r eviewed on the computer. A non-contrast CT is performed in conjunction with the PET scan. Glucose l evel 84 mg/dL COMPARISON: CT 06/03/2021, PET/CT 03/13/2022, , 10/05/2020 FINDINGS: Mediastinal SUV mean is 1.6. Hepatic parenchyma SUV mean is 2.5. SKULL BASE AND NECK: Right thyroid gland medial nodule with increased FDG activity max SUV 2.6. No additional suspicious FDG avid lesions identified. CHEST, MEDIASTINUM, AND HILAR REGION: No suspicious radiotracer activity. ABDOMEN AND PELVIS: No suspicious radiotracer activity. MUSCULOSKELETAL STRUCTURES: No suspicious radiotracer activity. OTHER CT: Atherosclerosis at the carotid bifurcations. Bilateral breast implants which appear intact. Cholecystectomy clips. Atherosclerosis of the arterial vasculature. Posttreatment changes to the lef t lung near the left breast along the wall. IMPRESSION: 1. No evidence for recurrence or new areas of abnormal FDG activity. 2. There is a right medial thyroid gland nodule with increased FDG activity. Thyroid ultrasound is r ecommended for further evaluation. Correlate with serum markers.
== END | disposition home or self-care (01) ==
LOC: RADPETMAIN 12:04
PROVIDERS: ATTEND Internal Medicine Hematology & Oncology
DX: C50.512 Malignant neoplasm of lower-outer quadrant of left female breast (principal); E04.1 Nontoxic single thyroid nodule
CPT/HCPCS: 78815; A9552

== ENCOUNTER → 2023-09-01 | Outpatient (CLI) | payer BC ==
[2023-09-01 12:10] LABS: African American GFR (CKD) >90 (>60 ml/min/1.73 sqM); Blood Urea Nitrogen 12 mg/dL (7-17); Non-African American GFR(CKD) 89 (>60 ml/min/1.73 sqM)
--- NOTE | 2023-09-01 13:33 | CT ---
EXAMINATION TYPE: CT soft tissue neck w con CT DLP: 354.10 mGycm, Automated exposure control for dose reduction was used. DATE OF EXAM: 09/01/2023 12:28 PM COMPARISON: Pet/CT 10/05/2020 and thyroid ultrasound 07/07/2023 CLINICAL INDICATION:Female, 58 years old with history of E04.1 NONTOXIC SINGLE THYROID NODULE; PHH, p oss rt side nodule noted on Pet scan and us recently TECHNIQUE: Standard enhanced CT of the neck. Axial sections with coronal and sagittal reformats were obtained. Contrast used:100 mL of Isovue 370 with IV Contrast, (None if empty) Oral contrast used: (None if empty) FINDINGS: Brain: Visualized portions are grossly unremarkable. Orbits: Unremarkable Sinuses: Grossly unremarkable. Spaces of the neck: Clear and symmetric. Musculoskeletal: No acute osseous pathology. Lymph nodes: Multiple nonenlarged lymph nodes are seen along both anterior chains of the neck. Vascular structures: Visualized major arteries are patent without evidence of aneurysm. Thoracic Inlet/airway: Airway is patent. Postsurgical changes to the left chest wall with breast impl ants present bilaterally. Soft tissues/Thyroid: Stable appearing right inferior medial thyroid nodule with peripheral calcifica tion. IMPRESSION Medial right thyroid gland nodule with peripheral cortication. Findings correlate with prior thyroid ultrasound 07/07/2023. Consider surveillance with ultrasound imaging. No evidence for acute process.
== END | disposition home or self-care (01) ==
LOC: RADCTMAIN 11:30
PROVIDERS: ATTEND Internal Medicine
DX: E04.1 Nontoxic single thyroid nodule (principal)
CPT/HCPCS: 82565; 84520; 70491; 36415; Q9967

== ENCOUNTER → 2024-05-18 | Outpatient (CLI) | payer BC ==
--- NOTE | 2024-06-16 13:36 | PE ---
Patient: Marianne Mak Ordering Physician: Unknown, Unknown ID: [id number] Phone, Pager: Phone: N/A Ap fran: N/A : 1965 Age/Gender: 59Y, F Primary Location: N/A Procedure: PETCT SKULL TO THIGH Stud y Date: 05/18/2024 3:20:43 PM EXAMINATION TYPE: PET CT fusion skull to thigh DATE OF EXAM: 05/30/2024 CLINICAL INDICATION: Breast cancer TECHNIQUE: Following the intravenous administration of 11.66 mCi of F-18 FDG, whole body images are performed from the skull base to the midthigh. Images are reviewed on the computer in the coronal, axial, and sagittal planes. Reconstructed rotating images are created on independent workstation and reviewed on the computer. A non-contrast CT is performed in conjunction with the PET scan. Glucose level 87 mg/dL CT DLP: 416 mGycm, Automated exposure control for dose reduction was used. COMPARISON: CT 09/01/2023, PET/CT 05/15/2023, MRI: None FINDINGS: Mediastinal SUV mean is 2.7. Hepatic parenchyma SUV mean is 2.8. SKULL BASE AND NECK: Right thyroid gland medial nodule with increased FDG activity max SUV 8.3, previously 3.6. No additio nal suspicious FDG avid lesions identified. CHEST, MEDIASTINUM, AND HILAR REGION: * No suspicious radiotracer activity. * Short segment of uptake within the distal esophagus max SUV 6.8. ABDOMEN AND PELVIS: No suspicious radiotracer activity. MUSCULOSKELETAL STRUCTURES: No suspicious radiotracer activity. OTHER CT: Atherosclerosis at the carotid bifurcations. Bilateral breast implants which appear intact. Cholecystectomy clips. Atherosclerosis of the arterial vasculature. Posttreatment changes to the lef t lung near the left breast along the wall. IMPRESSION: 1. No evidence for recurrence or new suspicious areas of abnormal FDG activity. 2. Short segment of uptake within the distal esophagus correlate for esophagitis. 3. Increased metabolic activity within the right medial thyroid gland nodule with increased FDG activ ity. Correlate with serum markers.
== END | disposition home or self-care (01) ==
LOC: RADPETMAIN 14:00
PROVIDERS: ATTEND Internal Medicine Hematology & Oncology
DX: C50.512 Malignant neoplasm of lower-outer quadrant of left female breast
CPT/HCPCS: 78815

== ENCOUNTER → 2024-08-16 | Outpatient (CLI) | payer BC ==
--- NOTE | 2024-08-16 20:49 | MR ---
EXAMINATION TYPE: MR cervical spine wo con DATE OF EXAM: 08/16/2024 8:32 PM COMPARISON: 09/01/2020. CLINICAL INDICATION: Female, 59 years old with history of NECK PAIN; PHH, Neck pain, Numbness Left anaya nd, fingers, forearm, Headaches, Hx LT Breast cancer with lymph node involvement in 2019 TECHNIQUE: Multi planar, multi sequence imaging was performed utilizing: T1-weighted, T2-weighted, an d turbo inversion recovery imaging of the cervical spine. IV Contrast: mL (None, if empty) FINDINGS: Alignment: The cervical vertebral bodies have preserved heights. Alignment is within normal limits gi tessa patient positioning. Bones: Bone signal is within normal limits. No abnormal bone marrow edema on inversion recovery seque nces. Cord: The spinal cord is unremarkable with regards to their signal intensity and morphology. Discs: Intervertebral disc signal is maintained. C2-C3: No significant disc pathology. The spinal canal is patent. No neural foraminal stenosis. C3-C4: No significant disc pathology. The spinal canal is patent. No neural foraminal stenosis. C4-C5: No significant disc pathology. The spinal canal is patent. No neural foraminal stenosis. C5-C6: A disc osteophyte complex is present which minimally narrows the ventral subarachnoid space. Bilateral facet and uncovertebral joint arthropathy are present with mild right neural foraminal miles nosis. The left neural foramen is patent. C6-C7: No significant disc pathology. The spinal canal is patent. No neural foraminal stenosis. C7-T1: No significant disc pathology. The spinal canal is patent. No neural foraminal stenosis. Other: None. IMPRESSION: 1. No evidence for disc herniation or significant spinal canal stenosis. 2. Mild disc degeneration with associated osteoarthritic changes. No evidence for high-grade neural f oraminal stenosis. [facility], , 08/16/2024 8:47 PM
== END | disposition home or self-care (01) ==
LOC: RADMRIMAIN 20:15
PROVIDERS: ATTEND Orthopaedic Surgery
DX: S46.092D Other injury of muscle(s) and tendon(s) of the rotator cuff of left shoulder, subsequent encounter (principal); S46.091D Other injury of muscle(s) and tendon(s) of the rotator cuff of right shoulder, subsequent encounter; M48.02 Spinal stenosis, cervical region; M50.10 Cervical disc disorder with radiculopathy, unspecified cervical region; M47.22 Other spondylosis with radiculopathy, cervical region; M19.012 Primary osteoarthritis, left shoulder; M65.311 Trigger thumb, right thumb; G56.03 Carpal tunnel syndrome, bilateral upper limbs; M25.611 Stiffness of right shoulder, not elsewhere classified; M85.811 Other specified disorders of bone density and structure, right shoulder; M25.612 Stiffness of left shoulder, not elsewhere classified; R20.2 Paresthesia of skin
CPT/HCPCS: 72141

== ENCOUNTER → 2024-12-12 | Outpatient (CLI) | payer BC ==
--- NOTE | 2024-12-12 08:10 | US ---
EXAMINATION TYPE: US carotid duplex BILAT DATE OF EXAM: 12/12/2024 COMPARISON: NONE CLINICAL INDICATION: Female, 59 years old with history of I65.23 carotid stenosis bilat; TECHNIQUE: Grayscale, color Doppler and spectral Doppler evaluation of the bilateral carotid systems and vertebral arteries. Indirect Doppler criteria was utilized. FINDINGS: EXAM MEASUREMENTS: RIGHT: Peak Systolic Velocity (PSV) cm/sec ----- Right CCA: 101 ----- Right ICA: 87.8 ----- Right ECA: 106 ICA/CCA ratio: 0.87 RIGHT: End Diastole cm/sec ----- Right CCA: 26.0 ----- Right ICA: 27.5 ----- Right ECA: 18.4 LEFT: Peak Systolic Velocity (PSV) cm/sec ----- Left CCA: 105 ----- Left ICA: 113 ----- Left ECA: 112 ICA/CCA ratio: 1.08 LEFT: End Diastole cm/sec ----- Left CCA: 27.9 ----- Left ICA: 37.0 ----- Left ECA: 12.3 VERTEBRALS (direction of flow): Right Vertebral: Antegrade Left Vertebral: Antegrade Rhythm: Normal SPRAY MACHINE TENDER NOTES: Mild plaque bilateral bifurcations. No evidence of increased velocities Color Doppler imaging shows patency with blood flow throughout the carotid artery. Spectral waveforms are within normal limits. IMPRESSION: Right: No hemodynamically significant stenosis. Left: No hemodynamically significant stenosis. Criteria for Assigning % of Stenosis / Diameter reduction (Estimation based on the indirect measurements of the internal carotid artery velocities (ICA PSV). 1. Normal (no stenosis)=ICA PSV < 125 cm/s: ratio < 2.0: ICA EDV<40 cm/s. 2. Less than 50% stenosis=ICA PSV < 125 cm/s: ratio < 2.0: ICA EDV<40 cm/s. 3. 50 to 69% stenosis=ICA PSV of 125 to 230 cm/s: ration 2.0 ? 4.0: ICA EDV 40-100 cm/s. 4. Greater than 70% stenosis to near occlusion= ICA PSV > 230 cm/s: ratio > 4.0: ICA EDV > 100 cm/s. 5. Near occlusion= ICA PSV velocities may be low or undetectable: variable ratio and ICA EDV. 6. Total occlusion=unable to detect flow. [facility], , 12/12/2024 8:08 AM
== END | disposition home or self-care (01) ==
LOC: RADUSWWP 07:18
PROVIDERS: ATTEND Internal Medicine
DX: I65.23 Occlusion and stenosis of bilateral carotid arteries (principal)
CPT/HCPCS: 93880

== ENCOUNTER → 2024-12-25 | Outpatient (CLI) | payer BC ==
--- NOTE | 2024-12-25 16:49 | US ---
EXAMINATION TYPE: US thyroid st tissue head/neck DATE OF EXAM: 12/25/2024 COMPARISON: 07/07/23 CLINICAL INDICATION: Female, 59 years old with history of E04.1 THYROID NODULE; follow up TECHNIQUE: Grayscale and color Doppler imaging of the thyroid gland. FINDINGS: GLAND SIZE: Right Lobe: 3.8 x 1.4 x 1.5 cm Overall Parenchyma: homogeneous Left Lobe: 3.3 x 1.4 x 1.0 cm Overall Parenchyma: homogeneous Isthmus Thickness: 0.3 cm NODULES RIGHT: # of nodules measured on right: 0 LEFT: # of nodules measured on left: 0 ISTHMUS: # of nodules measured in the isthmus: 1 1. 0.9 X 0.7 x 0.6 cm Prior size: 0.8 x 0.7 x 0.7 cm TIRADS Score: 6 TIRADS Category 4: Composition: Solid or almost completely solid (2 points). Echogenicity: Hypoechoic (2 points). Shape: Wider than tall (0 points). Margin: Smooth (0 points). Echogenic foci: Peripheral (rim) calcifications (2 points) Recommendation: If >1.5cm: FNA; If >1cm: Follow up at 1,2, 3,5 years Bilateral neck scanned, no evidence of lymphadenopathy. IMPRESSION: Isthmus nodule with peripheral calcification suggested. This meets criteria for follow-up. [facility], , 12/25/2024 4:46 PM
== END | disposition home or self-care (01) ==
LOC: RADUSWWP 16:24
PROVIDERS: ATTEND Internal Medicine
DX: E04.1 Nontoxic single thyroid nodule (principal)
CPT/HCPCS: 76536

== ENCOUNTER → 2025-03-29 | Outpatient (CLI) | payer BC ==
--- NOTE | 2025-03-29 14:02 | BD ---
EXAMINATION TYPE: Axial Bone Density DATE OF EXAM: 03/29/2025 CLINICAL HISTORY: 60 years old Female. ICD-10 CODE: M81.0 AGE-RELATED OSTEOPOROSIS W/O CURRENT PATHO LOGICAL FRAC , Additional History: Height: 59.5 Weight: 152 FRAX RISK QUESTIONS: Secondary Osteoporosis: RISK FACTORS HISTORY OF: MEDICATIONS: EXAM MEASUREMENTS: Bone mineral densitometry was performed using the [employer] System. Bone mineral density as measured about the Lumbar spine is: ----- L1-L4(G/cm2): 1.188 T Score Values are as follows: ----- L1: -1.2 ----- L2: 0.1 ----- L3: 0.1 ----- L4: 0.7 ----- L1-L4: 0.1 Z Score Values are as follows: ----- L1: 0.1 ----- L2: 1.4 ----- L3: 1.3 ----- L4: 1.9 ----- L1-L4: 1.3 Bone mineral density has: Increased 1.4% since study of: 09-21-21 Bone mineral density about the R hip (g/cm2): 0.915 Bone mineral density about the L hip (g/cm2): 0.888 T Score values are as follows: -----R Neck: -2.0 -----L Neck: -2.0 -----R Total: -0.7 -----L Total: -0.9 Z Score values are as follows: -----R Neck: -0.8 -----L Neck: -0.8 -----R Total: 0.2 -----L Total: 0.0 Bone mineral density has: Decreased -8.1% since study of: 09-22-21 FRAX%s: The graph provided illustrates a 10.0% chance for a major osteoporotic fx and a 1.4% chance f or the hips probability for fx in 10 years time. IMPRESSION: Osteopenia (T Score between -2.5 and -1). There is slightly increased risk of fracture and the patient may be considered for treatment. Re-Screen 2-5 years. NOTE: T-SCORE=SD OF THE YOUNG ADULT MEAN. [facility], , 03/29/2025 1:59 PM
== END | disposition home or self-care (01) ==
LOC: RADBDWWP 13:08
PROVIDERS: ATTEND Internal Medicine Hematology & Oncology
DX: M81.0 Age-related osteoporosis without current pathological fracture (principal); S22.32XA Fracture of one rib, left side, initial encounter for closed fracture; C50.512 Malignant neoplasm of lower-outer quadrant of left female breast; Z71.3 Dietary counseling and surveillance; M85.89 Other specified disorders of bone density and structure, multiple sites
CPT/HCPCS: 77080

== ENCOUNTER → 2025-04-05 | Outpatient (CLI) | payer BC ==
--- NOTE | 2025-04-05 13:36 | FL ---
EXAMINATION TYPE: FL barium swallow DATE OF EXAM: 04/05/2025 10:21 AM COMPARISON: 09/01/2023. CLINICAL INDICATION:Female, 60 years old with history of R13.10 DYSPHAGIA, UNSPECIFIED; [facility], TECHNIQUE: The procedure was explained and patient history elicited. All patient questions were ans wered prior to start of procedure. Multiple spot fluoroscopic images of the esophagus were obtained a fter the oral ingestion of effervescent crystals and liquid barium as the contrast agent. DAP: NOT REPORTED mGym2 FINDINGS: The esophagus demonstrates normal primary and secondary peristalsis. The esophageal mucosa is smooth without evidence of focal stricture, ulceration, or abnormal outpouching. No gastroesophageal reflu x disease was identified IMPRESSION: 1. Normal esophagram. [facility], , 04/05/2025 1:34 PM
== END | disposition home or self-care (01) ==
LOC: RADFLMAIN 09:21
PROVIDERS: ATTEND Internal Medicine Gastroenterology
DX: R13.10 Dysphagia, unspecified (principal)
CPT/HCPCS: 74220